=== PATIENT | female | born 1955 | race African-American/Black ===

== ENCOUNTER 2016-09-10 00:56 | Emergency (ER) | payer BC ==
[2016-09-10 01:08] VITALS: BP 149/71; BMI 34.4
--- NOTE | 2016-09-10 01:44 | DR.GENAD ---
HPI - PCP Primary Care Physician: Cas Uribe - HPI Comment HPI Comment: HISTORY BELOW. - Complaint/Symptoms Chief Complaint Doctors Comments: PATIENT FELL YESTERDAY 18:00 PM. INJURY TO NECK, RIGHT SHOULDER, RIGHT ELBOW AND LT FOOT. PATIENT HAVE HEADACHE. NO LOC.HAVE SEVERE ARTHRITIS. DID CERVICAL SPINE FUSION FEW MONTHS AGO. TONIGHT, PAIN WORSE. Chief Complaint:: " I feel this afternoon and im hurting in my right shoulder all down my arm, Left foot, and some pain in my neck. Self Treatment fo Chief Complaint: 1/ Percocet - Nurses notes reviewed Nurses Notes Review: Yes - Source History Provided: Patient - Mode of Arrival Mode of Arrival: Ambulatory - Timing Onset of Chief Complaint: 09/09/16 Came on: Suddenly - Duration Duration: Constant Duration: Hours - Severity Severity: Moderate PMH - PMH Past Medical History: Yes Past Medical History: Asthma, Diabetes, Hypertension, Seizures Past Surgical History: Yes Surgical History: , Cholecystectomy, Ortho Surgery - Family History History of Family Medical Conditions: Yes Family Medical History: Diabetes Mellitus, Cancer, [place], Sudden Cardiac , Hypertension - Social History Alcohol Use: None Do you use any recreational Drugs:: No Lives Where: Home - infectious screening Have you traveled outside the country in the last 6 months?: No ROS - Review of Systems Constitutional: No Symptoms Reported Eyes: No Symptoms Reported ENTM: No Symptoms Reported Respiratoy: No Symptoms Reported Cardiovascular: No Symptoms Reported Gastrointestinal/Abdominal: No Symptoms Reported Genitourinary: No Symptoms Reported Neurological: Headache, Numbness Musculoskeletal: Right, Neck, Shoulder, Elbow, Foot (LEFT) Integumentary: Bruises Hematologic/Lymphatic: No Symptoms Reported Endocrine: No Symptoms Reported All Other Systems: Reviewed and Negative PE - Vital Signs Vitals: Temperature 98.7 F Pulse Rate 84 Respiratory Rate 18 Blood Pressure [Left Arm] 97/51 Blood Pressure [Right Arm] 128/64 Blood Pressure 149/71 O2 Sat by Pulse Oximetry 97 - General Limitations: No Limitations General Appearance: Alert - Head Head Exam: Normal Inspection - Eyes Eye exam: Normal Appearance - ENT ENT Exam: Normal External Ear Exam External Ear Exam: Normal External Inspection TM/Canal Exam: Bilateral Normal Nose Exam: Normal Nose Exam Mouth Exam: Normal Inspection Throat Exam: Normal Inspection - Neck Neck Exam: Trachea Midline, Tenderness (POSTERIOR LOWER NECK) - Chest Chest Inspection: Symmetric Chest Wall Rise - Respiratory Respiratory Exam: Normal Lung Sounds Bilat Respiratory Exam: Bilateral Clear to Auscultation - Cardiovascular Cardiovascular Exam: Regular Rate, Normal Rhythm, Normal Heart Sounds - Abdominal Exam Abdominal Exam: Normal Bowel Sounds, Soft. negative: Tenderness - Extremities Extremities Exam: Tenderness (RIGHT SHOULDER AND RIGHT ELBOW AND LEFT FOOT.). negative: Full ROM (DECREASE RIGHT SHOULDER.) - Back Back Exam: Paraspinal Tenderness - Neurologic Neurological Exam: Alert, Oriented X3 - Psychiatric Psychiatric Exam: Normal Affect, Normal Mood - Skin Skin Exam: Normal Color MDM - Additional Information Additional Information Obtained From: Family - Differential Diagnosis Differential Diagnosis: SHOULDER AND ELBOW NECK AND FOOT FRATURE, CONTUSION AND SPRAIN. Course - Treatment Treatment: SEE ORDERS - Education/Counseling Education/Counseling: Patient, Family, Education Educated On: Treatment, Diagnosis, Needs for Follow Up ROR - XRAY XRAY Interpreted by: Radiologist XRAY Findings: REPORT DISCUSS WITH PATIENT AND FAMILY. - Diagnosis Discharge Problem: Cervical strain Qualifiers: Encounter type: initial encounter Qualified Code(s): S16.1XXA - Strain of muscle, fascia and tendon at neck level, initial encounter Sprain of shoulder, right Qualifiers: Encounter type: initial encounter Shoulder sprain type: unspecified sprain Qualified Code(s): S43.401A - Unspecified sprain of right shoulder joint, initial encounter Foot contusion Qualifiers: Encounter type: initial encounter Laterality: right Qualified Code(s): S90.31XA - Contusion of right foot, initial encounter Elbow contusion Qualifiers: Encounter type: initial encounter Laterality: right Qualified Code(s): S50.01XA - Contusion of right elbow, initial encounter - Discharge Plan Disposition: HOME, SELF-CARE Condition: Stable - Follow ups/Referrals Follow ups/Referrals: CAS URIBE [Primary Care Provider] - 09/13/16 - Instructions Instructions: Shoulder Sprain, Cervical Strain and Sprain With Rehab-SportsMed , Elbow Contusion, [id number], Foot Contusion, [id number] Additional Instructions: RETURN TO ED IF WORSE.
[2016-09-10] MEDS ORDERED: TORADOL 60 MG VIAL IM ONE (01:48)
[2016-09-10] MEDS ORDERED: TORADOL 60 MG VIAL ONE (02:06)
--- NOTE | 2016-09-10 02:47 | CT ---
EXAM: CT CERVICAL SPINE WITHOUT CONTRAST INDICATION: Fall, neck pain COMPARISION: No priors TECHNIQUE: Axial CT examination of the cervical spine was performed without intravenous contrast. Coronal and s agittal planes were reconstructed using the axial data. FINDINGS: There is anterior plate and screw and interbody fusion of C4 through C7. Advanced degenerative disc changes are present at C3-4. There is 4 mm of retrolisthesis of C3 relative to C4. There is a focal region of ossification of the posterior longitudinal ligament posterior to the C3-4 disc. No acute f racture or subluxation identified. The facets are intact. The central canal is patent. IMPRESSION: Cervical fusion noted. Chronic advanced degenerative changes are present at C3-4 above the fusion. N o acute abnormality identified. Reported By:
--- NOTE | 2016-09-10 02:49 | RAD ---
EXAM: Right elbow x-ray INDICATION: Pain COMPARISION: No priors for comparison TECHNIQUE: AP and lateral, 2 views FINDINGS: No acute fracture or dislocation. There is no evidence of an intraosseous lesion. The joint spaces a re preserved. No joint effusion is identified. The surrounding soft tissues appear unremarkable. The re is no evidence of a radiopaque foreign body. IMPRESSION: Normal right elbow x-ray exam Reported By:
--- NOTE | 2016-09-10 02:49 | RAD ---
EXAM: Right shoulder x-ray INDICATION: Pain COMPARISION: No priors for comparison TECHNIQUE: Lateral, AP with internal and external rotation, 3 views FINDINGS: No acute fracture or dislocation. The joint spaces are preserved. The soft tissues are normal. No ra diopaque foreign body. The visualize ribs are intact. IMPRESSION: Normal right shoulder x-ray examination Reported By:
--- NOTE | 2016-09-10 02:49 | CT ---
EXAM: CT BRAIN WITHOUT CONTRAST INDICATION: Fall, headache COMPARISION: No Priors TECHNIQUE: Routine axial CT of the brain was performed without intravenous contrast. FINDINGS: The cerebral and cerebellar cortex are normal. The ventricular system is nondilated. No intra or ext ra-axial mass or hemorrhage. The mayes-white junction is preserved. There is no evidence of subacute ischemic change. The basilar cisterns are clear. The skull is intact. The mastoid air cells are clear. There is chron ic left maxillary sinusitis. IMPRESSION: Normal brain CT examination Left maxillary sinusitis, chronic Reported By:
--- NOTE | 2016-09-10 02:50 | RAD ---
EXAM: Left foot x-ray INDICATION: Pain COMPARISION: None TECHNIQUE: AP, lateral, and oblique, three views FINDINGS: No acute fracture or dislocation. The joint spaces are preserved. The soft tissues are normal. No ra diopaque foreign body. IMPRESSION: Normal left foot x-ray exam Reported By:
== END 2016-09-10 03:22 | disposition home or self-care (01) ==
LOC: ER 00:56
DX: S16.1XXA Strain of muscle, fascia and tendon at neck level, initial encounter (principal); S43.401A Unspecified sprain of right shoulder joint, initial encounter; S90.31XA Contusion of right foot, initial encounter; S50.01XA Contusion of right elbow, initial encounter; W19.XXXA Unspecified fall, initial encounter; Y92.9 Unspecified place or not applicable
CPT/HCPCS: 70450; 72125; 73030; 73070; 73630; 96372; 99282; J1885

== ENCOUNTER → 2016-10-27 | Outpatient (CLI) | payer BC ==
--- NOTE | 2016-10-27 10:22 | MRI ---
MRI right shoulder without contrast Indication: Right shoulder pain since fall 2 months ago. Technique: Multi sequence, multiplanar MR images of the right shoulder were obtained without contras t. Comparison: Radiograph September 10, 2016 Findings: No acute fracture, malalignment or suspicious osseous lesion is seen. There is a high-grade, near complete bursal sided tear of the mid and posterior supraspinatus tendon at the critical zone. There is also a near complete-complete tear of the distal infraspinatus tendo n at the footplate with central retraction of the tendon to the level of the mid humeral head. There is mild tendinosis of the cranial subscapularis tendon without discrete tear. The teres minor appea rs intact. There is moderate edema of the supra and infraspinatus muscle bellies without associated atrophy. There are mild-moderate degenerative changes of the AC joint with associated subchondral cyst format ion within the distal clavicle and mild capsular hypertrophy, which encroaches upon the subjacent davis praspinatus. The type 2 acromion shows no significant anterior or lateral downsloping. There are mod erate degenerative changes of the glenohumeral joint with subchondral cyst formation within the ante rior and inferior osseous glenoid. There is no significant effusion. There is moderate fluid within the subdeltoid/subacromial bursa. There is thickening and intermediate signal of the intraarticular portion of the long head biceps te ndon with small fluid within the tendon sheath. The extra-articular tendon is appropriately position ed within the bicipital groove. There is moderate degenerative fraying of the anterior inferior labr um and intermediate intrasubstance signal within the anterior superior labrum, extending to the clarice ps anchor. Impression: High-grade, near full thickness bursal sided tear of the mid and posterior supraspinatus tendon at t he critical zone. Near complete-complete tear of the distal infraspinatus tendon with central tendon retraction to the level of the mid humeral head. Mild-moderate AC and glenohumeral joint DJD . Moderate fluid within the subdeltoid/subacromial bursa , either related to cuff tears or reflecting bursitis. Suspected SLAP tear and mild tenosynovitis of the long head biceps tendon. Reported By:
== END | disposition home or self-care (01) ==
LOC: RAD 08:43
PROVIDERS: ATTEND Nurse Practitioner Family
DX: M19.011 Primary osteoarthritis, right shoulder (principal); G81.91 Hemiplegia, unspecified affecting right dominant side; S46.811A Strain of other muscles, fascia and tendons at shoulder and upper arm level, right arm, initial encounter; X58.XXXA Exposure to other specified factors, initial encounter
CPT/HCPCS: 73221

== ENCOUNTER → 2016-11-25 | Outpatient (CLI) | payer BC ==
--- NOTE | 2016-11-25 10:09 | RAD ---
Three views of the right shoulder. Indication: Right shoulder pain. Conclusion: The right shoulder shows no fracture, malalignment or appreciable degenerative changes. No externally rotated view was provided. Reported By:
== END ==
LOC: RAD 09:12
PROVIDERS: ATTEND Specialist
DX: M25.511 Pain in right shoulder (principal)
CPT/HCPCS: 73030

== ENCOUNTER 2017-03-17 11:33 | Emergency (ER) | payer BC ==
[2017-03-17 11:49] VITALS: BP 150/70; BMI 33.3
--- NOTE | 2017-03-17 12:15 | DR.GENAD ---
HPI - PCP Primary Care Physician: [place] - Complaint/Symptoms Chief Complaint Doctors Comments: Patient admits to a bad cough for three weeks , this morning took two tablespoonsful, the cough continues. She admits to being drowsy and weak.Patient admits to a two pillow orthopnea, PND and can only walk a short distance before getting shortness of breath. Chief Complaint:: HAS HAD A BAD COUGH FOR LAST 3 WEEKS, ORDERED PHENERGAN WITH CODIENE FOR THE COUGH. SHE TOOK REGULAR MEDS AND 2 TABLESPOONS OF PHENERGAN WITH CODEINE AT ABOUT 0745 Self Treatment fo Chief Complaint: PT HAS INCREASED DROWSINESS. INCREASED WEAKNESS - Source History Provided: Patient, Family Member - Mode of Arrival Mode of Arrival: Ambulatory - Timing Onset of Chief Complaint: 03/17/17 PMH - PMH Past Medical History: Yes Past Medical History: Asthma, Diabetes, Hypertension, Seizures Past Surgical History: Yes Surgical History: , Cholecystectomy, Ortho Surgery - Family History History of Family Medical Conditions: Yes Family Medical History: Diabetes Mellitus, Cancer, [place], Sudden Cardiac , Hypertension - Social History Type of Tobacco Use: None Does any household member use tobacco: No Alcohol Use: None Do you use any recreational Drugs:: No Lives With: Family Lives Where: Home - infectious screening In the last 2 months have you had wt loss of >10#?: NO Have you had fever, night sweats or hemotysis?: No Have you traveled outside the country in the last 6 months?: No Isolation: Standard ROS - Review of Systems Eyes: No Symptoms Reported ENTM: No Symptoms Reported Respiratoy: No Symptoms Reported Cardiovascular: No Symptoms Reported Gastrointestinal/Abdominal: No Symptoms Reported Genitourinary: No Symptoms Reported Neurological: No Symptoms Reported Musculoskeletal: No Symptoms Reported Integumentary: No Symptoms Reported Hematologic/Lymphatic: No Symptoms Reported Endocrine: No Symptoms Reported Psychiatric: No Symptoms Reported All Other Systems: Reviewed and Negative PE - Vital Signs Vitals: Temperature 98.4 F Pulse Rate 81 Respiratory Rate 18 Blood Pressure [Left Arm] 97/51 Blood Pressure [Right Arm] 128/64 Blood Pressure 150/70 O2 Sat by Pulse Oximetry 91 - General Limitations: No Limitations General Appearance: Alert, In No Apparent Distress - Head Head Exam: Normal Inspection, Atraumatic - Eyes Eye exam: Normal Appearance, PERRL, EOMI - ENT ENT Exam: Normal Exam External Ear Exam: Normal External Inspection TM/Canal Exam: Bilateral Normal Nose Exam: Normal Nose Exam Mouth Exam: Normal Inspection Throat Exam: Normal Inspection - Neck Neck Exam: Normal Inspection, Full ROM - Chest Chest Inspection: Normal Inspection - Respiratory Respiratory Exam: Normal Lung Sounds Bilat Respiratory Exam: Bilateral Clear to Auscultation - Cardiovascular Cardiovascular Exam: Regular Rate, Normal Rhythm - Abdominal Exam Abdominal Exam: Normal Inspection, Normal Bowel Sounds, Soft Abdominal Tenderness: negative: RUQ, RLQ, LUQ, LLQ, Epigastrium, Suprapubic, Diffuse, Mild, Moderate, Severe, Other - Extremities Extremities Exam: Normal Inspection, Edema (two +pitting) - Back Back Exam: Normal Inspection - Neurologic Neurological Exam: Alert, Oriented X3, CN II-XII Intact - Psychiatric Psychiatric Exam: Normal Affect, Normal Mood - Skin Skin Exam: Warm, Dry, Intact Course - Treatment Treatment: Patient is alert in no acute distress, answers appropriately - Reevaluation 1st: Improved - Education/Counseling Education/Counseling: Patient, Family, Education (concerning medication instructions.), Counseling Educated On: Treatment, Diagnosis, Prognosis, Needs for Follow Up ROR - Labs Reviewed Result Diagrams: 03/17/17 12:26 03/17/17 12:26 Laboratory: WBC 7.4 X10^3/uL (3.6-10.0) 03/17/17 12:26 RBC 5.07 X10^6/uL (3.5-5.4) 03/17/17 12:26 Hgb 11.0 g/dL (12.0-16.0) L 03/17/17 12:26 Hct 34.7 % (36.0-47.0) L 03/17/17 12:26 MCV 68.4 fL (80.0-100.0) L 03/17/17 12:26 MCH 21.7 pg (27.0-34.0) L 03/17/17 12:26 MCHC 31.7 g/dL (33.0-35.0) L 03/17/17 12:26 RDW 14.3 % (11.6-16.5) 03/17/17 12:26 Plt Count 208 X10^3/uL (150.0-450.0) 03/17/17 12:26 Plt Count Comment Adequate (ADEQUATE) 03/17/17 12:26 MPV 8.8 fL (7.4-11.0) 03/17/17 12:26 Neut % 66.6 % (42.0-75.0) 03/17/17 12:26 Lymph % 19.7 % (21.0-51.0) L 03/17/17 12:26 Bullitt % 8.9 % (0.0-13.0) 03/17/17 12:26 Eos % 4.2 % (0.9-2.9) H 03/17/17 12:26 Baso % 0.6 % (0.2-1.0) 03/17/17 12:26 Neut # 4.9 x10^3/uL (2.2-4.8) H 03/17/17 12:26 Lymph # 1.5 X10^3/uL (1.3-2.9) 03/17/17 12:26 Bullitt # 0.7 x10^3/uL (0.3-0.8) 03/17/17 12:26 Eos # 0.3 x10^3/uL (0.0-0.2) H 03/17/17 12:26 Baso # 0.0 X10^3/uL (0.0-0.1) 03/17/17 12:26 Absolute Nucleated RBC 0.0 /100WBC 03/17/17 12:26 Plt Morphology Comment Normal (NORMAL) 03/17/17 12:26 RBC Morphology Abnormal (NORMAL) A 03/17/17 12:26 Hypochromasia 2+ A 03/17/17 12:26 Poikilocytosis Slight A 03/17/17 12:26 Microcytosis 1+ A 03/17/17 12:26 Sodium 142 mmol/L (136-145) 03/17/17 12:26 Corrected Sodium TNP 03/17/17 12:26 Potassium 3.0 mmol/L (3.5-5.1) L* 03/17/17 12:26 Chloride 104 mmol/L (98-107) 03/17/17 12:26 Carbon Dioxide 30.5 mmol/L (21-32) 03/17/17 12:26 BUN 25 mg/dL (7-18) H 03/17/17 12:26 Creatinine 1.17 mg/dL (0.55-1.02) H 03/17/17 12:26 Est GFR (MDRD) Af Amer > 60 (>60) 03/17/17 12:26 Est GFR (MDRD) Non-Af 50 (>60) L 03/17/17 12:26 Glucose 102 mg/dL (65-99) H 03/17/17 12:26 Calcium 8.8 mg/dL (8.5-10.1) 03/17/17 12:26 Corrected Calcium 9.7 mg/dL (8.5-10.1) 03/17/17 12:26 Total Bilirubin 0.20 mg/dL (0.2-1.0) 03/17/17 12:26 AST 19 Units/L (15-37) 03/17/17 12:26 ALT 17 Units/L (12-78) 03/17/17 12:26 Alkaline Phosphatase 98 Units/L (46-116) 03/17/17 12:26 Creatine Kinase 273 Units/L (26-192) H 03/17/17 12:26 CK-MB (CK-2) 3.1 ng/mL (0-4.0) 03/17/17 12:26 CK/CKMB % Calc 1.1 % (<4) 03/17/17 12:26 Troponin I < 0.02 ng/mL (0-1.5) 03/17/17 12:26 C-Reactive Protein 6.10 mg/L (0-3.0) H 03/17/17 12:26 Total Protein 7.3 g/dL (6.4-8.2) 03/17/17 12:26 Albumin 2.9 g/dL (3.4-5.0) L 03/17/17 12:26 Globulin 4.4 g/dL (2.5-4.5) 03/17/17 12:26 Albumin/Globulin Ratio 0.7 Ratio (1.1-2.1) L 03/17/17 12:26 - XRAY XRAY Interpreted by: Radiologist (Chest comparison reference 08/06/15 Findings: upper normal heart size with central pulmonary vascular distention. There is no evidence for consolidation, pneumothorax or large pleural effusion. Impression: plmonary vascular congestion, at least some of which may be related to partial expiration and nonstandard portable factors.) - Diagnosis Discharge Problem: Pulmonary vascular congestion Accidental overdose by codeine Qualifiers: Encounter type: initial encounter Qualified Code(s): T40.2X1A - Poisoning by other opioids, accidental (unintentional), initial encounter - Discharge Plan Condition: Stable - Follow ups/Referrals Follow ups/Referrals: CAS AVILA [Primary Care Provider] - 3 days - Instructions
[2017-03-17] MEDS ORDERED: NARCAN INJ IVP ONE (12:26)
[2017-03-17 12:34] LABS: BASOPHILS % (AUTO) 0.6 % (0.2-1.0); EOSINOPHILS # (AUTO) 0.3 x10^3/uL (0.0-0.2); EOSINOPHILS % (AUTO) 4.2 % (0.9-2.9); HEMATOCRIT 34.7 % (36.0-47.0); LYMPHOCYTES # (AUTO) 1.5 X10^3/uL (1.3-2.9); LYMPHOCYTES % (AUTO) 19.7 % (21.0-51.0); MEAN CORPUSCULAR HEMOGLOBIN 21.7 pg (27.0-34.0); MEAN CORPUSCULAR HGB CONC 31.7 g/dL (33.0-35.0); MEAN CORPUSCULAR VOLUME 68.4 fL (80.0-100.0); MEAN PLATELET VOLUME 8.8 fL (7.4-11.0); MONOCYTES # (AUTO) 0.7 x10^3/uL (0.3-0.8); MONOCYTES % (AUTO) 8.9 % (0.0-13.0); NEUTROPHILS # (AUTO) 4.9 x10^3/uL (2.2-4.8); NEUTROPHILS % (AUTO) 66.6 % (42.0-75.0); PLATELET COUNT 208 X10^3/uL (150.0-450.0); RED BLOOD COUNT 5.07 X10^6/uL (3.5-5.4); RED CELL DISTRIBUTION WIDTH 14.3 % (11.6-16.5); WHITE BLOOD COUNT 7.4 X10^3/uL (3.6-10.0)
[2017-03-17] MEDS ORDERED: NARCAN INJ ONE (12:47)
--- NOTE | 2017-03-17 12:50 | RAD ---
Examination: Portable AP chest History: Cough Comparison reference 08/06/2015 Findings: Upper normal heart size with central pulmonary vascular distention. There is no evidence fo r consolidation, pneumothorax or large pleural effusion. Impression: Pulmonary vascular congestion, at least some of which may be related to partial expiratio n and nonstandard portable factors. Reported By:
[2017-03-17 12:52] LABS: ALANINE AMINOTRANSFERASE 17 Units/L (12-78); ALBUMIN 2.9 g/dL (3.4-5.0); ALKALINE PHOSPHATASE 98 Units/L (46-116); ASPARTATE AMINO TRANSFERASE 19 Units/L (15-37); BLOOD UREA NITROGEN 25 mg/dL (7-18); CARBON DIOXIDE 30.5 mmol/L (21-32); CHLORIDE 104 mmol/L (98-107); CKMB % 1.1 % (<4); CREATINE KINASE 273 Units/L (26-192); CREATINE KINASE MB 3.1 ng/mL (0-4.0); CREATININE 1.17 mg/dL (0.55-1.02); SODIUM 142 mmol/L (136-145); TOTAL PROTEIN 7.3 g/dL (6.4-8.2); TROPONIN I < 0.02 ng/mL (0-1.5); eGFR BLACK RACES > 60 (>60); eGFR NON BLACK RACES 50 (>60)
[2017-03-17] MEDS ORDERED: NS 1000 ML 1,000 ML ONE (12:56)
[2017-03-17] MEDS ORDERED: NS 1000 ML 1,000 ML IV SCH (13:00)
[2017-03-17 13:08] LABS: CALCIUM 8.8 mg/dL (8.5-10.1); COR CA(FOR HYPOALB) 9.7 mg/dL (8.5-10.1); HYPOCHROMASIA 2+; MICROCYTOSIS 1+; PLATELET MORPHOLOGY COMMENT NORMAL (NORMAL); POIKILOCYTOSIS SLIGHT
[2017-03-17] MEDS ORDERED: K-LYTE EFFERVESCENT ONE (13:23)
[2017-03-17] MEDS ORDERED: K-LYTE EFFERVESCENT PO SCH (14:00)
== END 2017-03-17 14:40 | disposition home or self-care (01) ==
LOC: ER 12:08
DX: R09.89 Other specified symptoms and signs involving the circulatory and respiratory systems (principal); T40.2X1A Poisoning by other opioids, accidental (unintentional), initial encounter
CPT/HCPCS: 36415; 71010; 80053; 82550; 82553; 84484; 85025; 86140; 93005; 93010; 96365; 96374; 99283; 99284; A4222; J2310

== ENCOUNTER → 2017-05-16 | Outpatient (CLI) | payer BC ==
--- NOTE | 2017-05-16 14:04 | RAD ---
HISTORY: Cough Study: Two views the chest Comparison: March 17, 2017 Findings: The trachea is midline. The cardiac silhouette is enlarged. Increased perihilar markings and mild b ronchial thickening are noted. Postoperative changes of the cervical spine are partially visualize d. Surgical clips project over the right upper quadrant the abdomen. IMPRESSION: 1. Radiographic findings of bronchitis/viral illness. Reported By:
== END ==
LOC: RAD 13:08
PROVIDERS: ATTEND Obstetrics & Gynecology Obstetrics
DX: R60.1 Generalized edema (principal)
CPT/HCPCS: 71046

== ENCOUNTER → 2017-05-18 | Outpatient (CLI) | payer BC | LOC: RAD 14:41 | PROVIDERS: ATTEND Obstetrics & Gynecology Obstetrics | DX: R60.1 Generalized edema (principal); R05 Cough | CPT/HCPCS: 93306 ==

== ENCOUNTER 2017-08-22 07:42 | Emergency (ER) | payer BC ==
[2017-08-22 07:47] VITALS: BMI 33.6
--- NOTE | 2017-08-22 08:14 | CT ---
HISTORY: Headache, dysphagia, ataxia, tongue deviation Study: CT brain without contrast Comparison: September 10, 2016 Technique: Multiple axial images of the brain were obtained from the skull base to the vertex withou t administration of IV contrast. AEC was utilized. Findings: No acute intraparenchymal hemorrhage or mass can be identified. No extra-axial fluid collections are seen. No alteration in the attenuation of the brain parenchyma can be identified to suggest acute o r subacute ischemic change. There is a background of mild chronic microvascular ischemic disease. If there is high clinical suspicion for an acute or subacute ischemic event, MRI would be recommended. The ventricular system is symmetric and nondilated. Severe chronic left maxillary sinusitis is noted . IMPRESSION: No acute intracranial process can be identified. Background of mild chronic microvascular ischemic di sease. If there is high clinical suspicion for an acute or subacute ischemic event, MRI would be mila mmended. Reported By:
[2017-08-22 08:36] LABS: BASOPHILS # (AUTO) 0.1 X10^3/uL (0.0-0.1); BASOPHILS % (AUTO) 0.8 % (0.2-1.0); EOSINOPHILS # (AUTO) 0.3 x10^3/uL (0.0-0.2); EOSINOPHILS % (AUTO) 4.3 % (0.9-2.9); HEMATOCRIT 38.2 % (36.0-47.0); HEMOGLOBIN 12.1 g/dL (12.0-16.0); LYMPHOCYTES # (AUTO) 1.9 X10^3/uL (1.3-2.9); LYMPHOCYTES % (AUTO) 26.5 % (21.0-51.0); MEAN CORPUSCULAR HEMOGLOBIN 21.7 pg (27.0-34.0); MEAN CORPUSCULAR HGB CONC 31.6 g/dL (33.0-35.0); MEAN CORPUSCULAR VOLUME 68.7 fL (80.0-100.0); MEAN PLATELET VOLUME 8.7 fL (7.4-11.0); MONOCYTES # (AUTO) 0.6 x10^3/uL (0.3-0.8); MONOCYTES % (AUTO) 8.8 % (0.0-13.0); NEUTROPHILS # (AUTO) 4.2 x10^3/uL (2.2-4.8); NEUTROPHILS % (AUTO) 59.6 % (42.0-75.0); PLATELET COUNT 243 X10^3/uL (150.0-450.0); RED BLOOD COUNT 5.57 X10^6/uL (3.5-5.4); RED CELL DISTRIBUTION WIDTH 14.5 % (11.6-16.5); WHITE BLOOD COUNT 7.1 X10^3/uL (3.6-10.0)
[2017-08-22 08:51] LABS: HYPOCHROMASIA 1+; MICROCYTOSIS 1+; PLATELET MORPHOLOGY COMMENT NORMAL (NORMAL)
[2017-08-22 08:52] LABS: ALANINE AMINOTRANSFERASE 27 Units/L (12-78); ALKALINE PHOSPHATASE 123 Units/L (46-116); ASPARTATE AMINO TRANSFERASE 15 Units/L (15-37); BLOOD UREA NITROGEN 24 mg/dL (7-18); CALCIUM 8.7 mg/dL (8.5-10.1); CARBON DIOXIDE 31.6 mmol/L (21-32); CHLORIDE 101 mmol/L (98-107); COR CA(FOR HYPOALB) 9.5 mg/dL (8.5-10.1); COR NA(FOR HYPERGLY) 141 mmol/L (136-145); CREATINE KINASE 253 Units/L (26-192); CREATINE KINASE MB 2.5 ng/mL (0-4.0); CREATININE 1.29 mg/dL (0.55-1.02); SODIUM 138 mmol/L (136-145); TOTAL PROTEIN 8.3 g/dL (6.4-8.2); TROPONIN I < 0.02 ng/mL (0-1.5); eGFR BLACK RACES 54 (>60); eGFR NON BLACK RACES 44 (>60)
--- NOTE | 2017-08-22 09:32 | DR.GENAD ---
HPI - PCP Primary Care Physician: STERLING SAMUELSP - HPI Comment HPI Comment: PATIENTS TONGUE DEVIATES TO THE LEFT. HER UNSEADINESS AND ARM NUMBNESS GETTING WORSE. NO FEVER OR SINUS CONGESTION. - Complaint/Symptoms Chief Complaint Doctors Comments: HEADCHE, LEFT ARM WEAKNESS, DYSPHAGIA AND TONGUE FEELING SWOLLEN AND ATAXIA SINCE LAST NIGHT. Chief Complaint:: PT. STATES SHE BEGAN HAVING A HEADACHE LAST NIGHT. SHE SAYS HER TOUNGE FEELS SWOLLEN ON ONE SIDE AND IT IS DIFFICULT FOR HER TO SWALLOW. PT. SAYS HER LEFT ARM FEELS TIRED. PT. HAS AN UNSTEADY GAIT. TOUNGE DEVIATION TO THE LEFT. - Nurses notes reviewed Nurses Notes Review: Yes - Source History Provided: Patient - Mode of Arrival Mode of Arrival: Ambulatory - Timing Onset of Chief Complaint: 08/22/17 Came on: Suddenly - Duration Duration: Constant Duration: Days - Severity Severity: Moderate PMH - PMH Past Medical History: Yes Past Medical History: Asthma, Diabetes, Hypertension, Seizures Past Medical History Comment: TIA Past Surgical History: Yes Surgical History: , Cholecystectomy, Ortho Surgery - Family History History of Family Medical Conditions: Yes Family Medical History: Diabetes Mellitus, Cancer, [place], Sudden Cardiac , Hypertension - Social History Does patient currently use any type of tobacco product: No Have you used tobacco products in the last 12 months: No Type of Tobacco Use: None Does any household member use tobacco: No Alcohol Use: None Do you use any recreational Drugs:: No Lives With: Spouse Lives Where: Home - infectious screening In the last 2 months have you had wt loss of >10#?: NO Have you had fever, night sweats or hemotysis?: No Have you traveled outside the country in the last 6 months?: No Isolation: Standard ROS - Review of Systems Constitutional: Weakness (LT ARM WEAK.) Eyes: No Symptoms Reported ENTM: negative: Mouth Swelling (TONGUE FELL SWOLLEN. DIFFICULT TO SWALLOW.) Respiratoy: Non-Productive Cough. negative: Short of Breath, Wheezing, Hemoptysis Cardiovascular: negative: Chest Pain, Edema Gastrointestinal/Abdominal: negative: Abdominal Pain Genitourinary: negative: Dysuria, Hematuria Neurological: Headache, Numbness (LT ARM), Weakness, Dizziness Musculoskeletal: No Symptoms Reported Integumentary: No Symptoms Reported Hematologic/Lymphatic: No Symptoms Reported Endocrine: No Symptoms Reported All Other Systems: Reviewed and Negative PE - Vital Signs Vitals: Temperature 97.6 F Pulse Rate [Left Brachial] 74 Pulse Rate 86 Respiratory Rate 16 Blood Pressure [Left Arm] 144/70 Blood Pressure [Right Arm] 128/64 Blood Pressure 158/69 O2 Sat by Pulse Oximetry 96 - General Limitations: No Limitations General Appearance: Alert - Head Head Exam: Normal Inspection - Eyes Eye exam: Normal Appearance - ENT ENT Exam: Normal External Ear Exam External Ear Exam: Normal External Inspection TM/Canal Exam: Bilateral Normal Nose Exam: Normal Nose Exam Mouth Exam: Normal Inspection Throat Exam: Normal Inspection - Neck Neck Exam: Trachea Midline - Chest Chest Inspection: Symmetric Chest Wall Rise - Respiratory Respiratory Exam: Normal Lung Sounds Bilat Respiratory Exam: Bilateral Clear to Auscultation - Cardiovascular Cardiovascular Exam: Regular Rate, Normal Rhythm, Normal Heart Sounds - Abdominal Exam Abdominal Exam: Normal Bowel Sounds, Soft. negative: Tenderness - Extremities Extremities Exam: Normal Inspection - Back Back Exam: Normal Inspection - Neurologic Neurological Exam: Alert, Oriented X3. negative: CN II-XII Intact - Psychiatric Psychiatric Exam: Normal Affect, Normal Mood - Skin Skin Exam: Normal Color MDM - Additional Information Additional Information Obtained From: Family - Differential Diagnosis Differential Diagnosis: CVA, TIA, [place], ELECTROLYTE ABNORMALITY, UTI, SEPSIS Course - Treatment Treatment: SEE ORDERS. PATIENT CONTINUE TO COUGH INTERMITTENTLY FROM SWALLOWING HER SALIVA. LT ARM STILL WEAK AND SHE STILL HAVE ATAXIA. POTASSIUM GIVEN AND D50 STARTED/PATIENTS GLUSOSE DECREASING. - Consultation Consultation Comments: DISCUSS PATIENT WITH . MRI BRAIN REQUESTED. POSSIBLE RT RETINNA DETACHMENT. TRANSFER TO [facility]. DR. ESTEVES IN ED ACCEPTED PATIENT. - Education/Counseling Education/Counseling: Patient, Family, Education Educated On: Diagnosis ROR - Labs Reviewed Laboratory Results Reviewed?: Yes Result Diagrams: 08/22/17 08:23 08/22/17 08:23 Laboratory: WBC 7.1 X10^3/uL (3.6-10.0) 08/22/17 08:23 RBC 5.57 X10^6/uL (3.5-5.4) H 08/22/17 08:23 Hgb 12.1 g/dL (12.0-16.0) 08/22/17 08:23 Hct 38.2 % (36.0-47.0) 08/22/17 08:23 MCV 68.7 fL (80.0-100.0) L 08/22/17 08: MCH 21.7 pg (27.0-34.0) L 08/22/17 08: MCHC 31.6 g/dL (33.0-35.0) L 08/22/17 08: RDW 14.5 % (11.6-16.5) 08/22/17: Plt Count 243 X10^3/uL (150.0-450.0) 08/22/17: Plt Count Comment Adequate (ADEQUATE) 08/22/17: MPV 8.7 fL (7.4-11.0) 08/22/17: Neut % (Auto) 59.6 % (42.0-75.0) 08/22/17: Lymph % (Auto) 26.5 % (21.0-51.0) 08/22/17 08: [place] % (Auto) 8.8 % (0.0-13.0) 08/22/17 08: Eos % (Auto) 4.3 % (0.9-2.9) H 08/22/17 08: Baso % (Auto) 0.8 % (0.2-1.0) 08/22/17: Neut # (Auto) 4.2 x10^3/uL (2.2-4.8) 08/22/17 08: Lymph # (Auto) 1.9 X10^3/uL (1.3-2.9) 08/22/17 08: [place] # (Auto) 0.6 x10^3/uL (0.3-0.8) 08/22/17 08: Eos # (Auto) 0.3 x10^3/uL (0.0-0.2) H 08/22/17 08: Baso # (Auto) 0.1 X10^3/uL (0.0-0.1) 08/22/17 08: Absolute Nucleated RBC 0.1 /100WBC 08/22/17 08: Total Counted 100 08/22/17 08: Neutrophils % (Manual) 60 % (39-76) 08/22/17 08: Lymphocytes % (Manual) 28 % (13-43) 08/22/17 08:23 Monocytes % (Manual) 5 % (4-9) 08/22/17 08:23 Eosinophils % (Manual) 7 % (0-6) H 08/22/17 08:23 Plt Morphology Comment Normal (NORMAL) 08/22/17 08:23 RBC Morphology Abnormal (NORMAL) A 08/22/17 08:23 Hypochromasia 1+ A 08/22/17 08:23 Microcytosis 1+ A 08/22/17 08:23 INR Target Range - 08/22/17 08:23 INR 0.94 (0.8-1.3) 08/22/17 08:23 APTT 22.9 SECONDS (22.9-36.5) 08/22/17 08:23 PTT Comment - 08/22/17 08:23 Sodium 138 mmol/L (136-145) 08/22/17 08:23 Corrected Sodium 141 mmol/L (136-145) 08/22/17 08:23 Potassium 3.1 mmol/L (3.5-5.1) L 08/22/17 08:23 Chloride 101 mmol/L (98-107) 08/22/17 08:23 Carbon Dioxide 31.6 mmol/L (21-32) 08/22/17 08:23 BUN 24 mg/dL (7-18) H 08/22/17 08:23 Creatinine 1.29 mg/dL (0.55-1.02) H 08/22/17 08:23 Est GFR (MDRD) Af Amer 54 (>60) L 08/22/17 08:23 Est GFR (MDRD) Non-Af 44 (>60) L 08/22/17 08:23 Glucose 242 mg/dL (65-99) H 08/22/17 08:23 POC Glucose (mg/dL) 119 mg/dL (65-99) H 08/22/17 16:54 Calcium 8.7 mg/dL (8.5-10.1) 08/22/17 08:23 Corrected Calcium 9.5 mg/dL (8.5-10.1) 08/22/17 08:23 Total Bilirubin 0.30 mg/dL (0.2-1.0) 08/22/17 08:23 AST 15 Units/L (15-37) 08/22/17 08:23 ALT 27 Units/L (12-78) 08/22/17 08:23 Alkaline Phosphatase 123 Units/L (46-116) H 08/22/17 08:23 Creatine Kinase 253 Units/L (26-192) H 08/22/17 08:23 CK-MB (CK-2) 2.5 ng/mL (0-4.0) 08/22/17 08:23 CK/CKMB % Calc 1.0 % (<4) 08/22/17 08:23 Troponin I < 0.02 ng/mL (0-1.5) 08/22/17 08:23 Total Protein 8.3 g/dL (6.4-8.2) H 08/22/17 08:23 Albumin 3.0 g/dL (3.4-5.0) L 08/22/17 08:23 Globulin 5.3 g/dL (2.5-4.5) H 08/22/17 08:23 Albumin/Globulin Ratio 0.6 Ratio (1.1-2.1) L 08/22/17 08:23 Amylase 56 Units/L (25-115) 08/22/17 08:23 Lipase 82 Units/L (73-393) 08/22/17 08:23 - XRAY XRAY Interpreted by: Radiologist XRAY Findings: REPORT DISCUSS WITH PATIENT. - EKG Rhythm: NSR (EKG NOTED.) - Diagnosis Discharge Problem: Left-sided weakness, Ataxia Retinal detachment Qualifiers: Laterality: right Qualified Code(s): H33.21 - Serous retinal detachment, right eye - Discharge Plan Disposition: XF [facility] Condition: Stable - Follow ups/Referrals Follow ups/Referrals: CAS AVILA [Primary Care Provider] - 3 days - Instructions
[2017-08-22 09:51] LABS: AMYLASE 56 Units/L (25-115); LIPASE 82 Units/L (73-393)
[2017-08-22] MEDS ORDERED: NS + KCL 40 MEQ/L 1,000 ML IV SCH (11:00)
--- NOTE | 2017-08-22 14:21 | MRI ---
STUDY: MRA OF THE BRAIN HISTORY: Dysphagia. Ataxia. Headache, dizziness, left-sided weakness. Comparison: Brain MRI from August 22, 2017, head CT from August 22, 2017 and September 10, 2016. Technique: 3D [id number] imaging of the intracranial circulation was performed. Findings: 3D [id number] MRA examination shows normal flow related enhancement in the major intracranial art eries. There is no evidence of hemodynamically significant stenosis or aneurysm. There is a normal an terior communicating artery. Posterior communicating arteries are not identified. Vertebral arteries are codominant. IMPRESSION: 1. Normal MRA of the brain. Reported By:
--- NOTE | 2017-08-22 14:27 | MRI ---
STUDY: MRI OF THE BRAIN WITHOUT AND WITH GADOLINIUM HISTORY: Dysphagia. Ataxia. Dizziness, headache, and left-sided weakness. Technique: Multiplanar multi-sequence MRI of the brain was obtained using standard departmental fernandez col. Sagittal and axial T1, axial T2, FLAIR, diffusion (DWI/ADC), GRE, and coronal T2 images through the brain were performed. 18 cc of Omniscan was administered intravenously without reported complication following acquisition of informed written consent. Post gadolinium axial and coronal T1 weighted images were also performed and reviewed. Comparison: Head CT dated August 22, 2017. Findings: Pre gadolinium brain: The sulci, cisterns and ventricles are age appropriate. There are thin confluen t and scattered foci of T2 prolongation in the periventricular and subcortical white matter of both h emispheres. This is a nonspecific finding which likely represents microangiopathic change in a patien t of this age. There is no evidence of acute territorial infarction, hemorrhage, mass, mass effect, or midline shift . There are no abnormal intra-axial or extra-axial fluid collections. The major intracranial vascula r flow voids appear intact. The vertebral arteries are codominant. There is a curvilinear focus of T2 hyperintensity along the posterior nolasco of the retina on the righ t. This raises concern for retinal detachment. There is bilateral aphakia. Post gadolinium brain: Following the uneventful administration of intravenous gadolinium, there is no evidence of abnormal parenchymal or leptomeningeal enhancement. IMPRESSION: 1. No evidence of acute intracranial abnormality. 2. Nonspecific white matter change. 3. Curvilinear signal abnormality along the posterior aspect of the right globe. This finding raises concern for the possibility of retinal detachment. Clinical correlation is recommended. Reported By:
[2017-08-22] MEDS ORDERED: D5W 1000 ML IV 1,000 ML IV ONE (15:56)
[2017-08-22] MEDS ORDERED: D5W 1000 ML IV 1,000 ML IV SCH (16:00)
[2017-08-22 16:07] VITALS: BP 144/70
[2017-08-22] MEDS ORDERED: K-RIDER 10 MEQ/NS 100 ML 10 MEQ/100 ML BAG IV ONE ×2 (17:38→17:41)
[2017-08-22] MEDS ORDERED: D5W 1000 ML IV 1,000 ML with POTASSIUM CHLORIDE INJ 40 MEQ VIAL 40 MEQ IV SCH ×2 (18:00)
== END 2017-08-22 17:38 | disposition short-term general hospital (02) ==
LOC: ER 07:56
DX: R27.0 Ataxia, unspecified (principal); R53.1 Weakness; H33.21 Serous retinal detachment, right eye; R51 Headache
CPT/HCPCS: 36415; 70450; 70544; 70553; 80053; 82150; 82550; 82553; 83690; 84484; 85025; 85610; 85730; 93005; 93010; 96365; 96367; 99285; A4222; J3480

== ENCOUNTER 2021-08-30 15:01 | Observation (INO) ==
[2021-08-30 18:33] LABS: BASOPHILS # (AUTO) 0.1 X10^3/uL (0.0-0.1); BASOPHILS % (AUTO) 1.5 % (0.2-1.0); EOSINOPHILS # (AUTO) 0.2 x10^3/uL (0.0-0.2); MONOCYTES # (AUTO) 0.6 x10^3/uL (0.3-0.8)
[2021-08-30 18:37] VITALS: BMI 33.5
[2021-08-30 18:48] LABS: ALBUMIN 2.9 g/dL (3.4-5.0); CALCIUM 8.4 mg/dL (8.5-10.1); COR CA(FOR HYPOALB) 9.3 mg/dL (8.5-10.1); CREATININE 1.29 mg/dL (0.55-1.02); TOTAL PROTEIN 7.3 g/dL (6.4-8.2)
[2021-08-30 19:11] LABS: EOSINOPHILS % (AUTO) 2.2 % (0.9-2.9); HEMATOCRIT 38.6 % (36.0-47.0); HEMOGLOBIN 12.1 g/dL (12.0-16.0); LYMPHOCYTES # (AUTO) 2.7 X10^3/uL (1.3-2.9); LYMPHOCYTES % (AUTO) 35.7 % (21.0-51.0); MEAN CORPUSCULAR HGB CONC 31.5 g/dL (33.0-35.0); MEAN CORPUSCULAR VOLUME 70.1 fL (80.0-100.0); MEAN PLATELET VOLUME 9.5 fL (7.4-11.0); MONOCYTES % (AUTO) 7.2 % (0.0-13.0); NEUTROPHILS # (AUTO) 4.1 x10^3/uL (2.2-4.8); NEUTROPHILS % (AUTO) 53.4 % (42.0-75.0); RED BLOOD COUNT 5.51 X10^6/uL (3.5-5.4); RED CELL DISTRIBUTION WIDTH 14.5 % (11.6-16.5)
[2021-08-30 19:12] LABS: WHITE BLOOD COUNT 9.1 X10^3/uL (3.6-10.0)
[2021-08-30 19:21] LABS: GIANT PLATELET RARE; PLATELET MORPHOLOGY COMMENT ABNORMAL (NORMAL)
[2021-08-30 19:22] LABS: HYPOCHROMASIA 1+; MICROCYTOSIS SLIGHT
[2021-08-30 19:23] LABS: TARGET CELLS PRESENT
[2021-08-30 19:39] LABS: BILIRUBIN,URINE NEGATIVE (NEGATIVE); BLOOD/HEMOGLOBIN,URINE NEGATIVE (NEGATIVE); GLUCOSE, URINE 4+ (NEGATIVE); KETONES,URINE NEGATIVE (NEGATIVE); LEUKOCYTE ESTERASE ,URINE NEGATIVE (NEGATIVE); NITRITES,URINE NEGATIVE (NEGATIVE); PROTEIN,URINE NEGATIVE (NEGATIVE); UROBILINOGEN,URINE 1+ (NORMAL)
[2021-08-30] MEDS ORDERED: KLOR-CON PO PRN (19:42)
[2021-08-30] MEDS ORDERED: K-RIDER 10 MEQ/NS 100 ML 10 MEQ/100 ML BAG IV PRN (19:42)
[2021-08-30] MEDS ORDERED: POTASSIUM CHLORIDE LIQ 20 MEQ UDC PO PRN (19:42)
[2021-08-30] MEDS ORDERED: MAGNESIUM SULFATE 1 GRAM/100 mL PREMIX 1 G/100 ML BAG IV PRN (19:42)
[2021-08-30] MEDS ORDERED: MICRO K EXTEN CAP 10 MEQ PO PRN (19:42)
[2021-08-30] MEDS ORDERED: POTASSIUM CHL 60 MEQ/NS 0.45% 500 ML IV PRN (19:42)
[2021-08-30] MEDS ORDERED: POTASSIUM CHL 40 MEQ/NS 0.45% 500 ML IV PRN (19:42)
[2021-08-30 19:53] LABS: APPEARANCE,URINE CLEAR (CLEAR); COLOR,URINE STRAW (YELLOW)
[2021-08-30 19:54] LABS: BACTERIA,URINE TRACE /HPF (NEGATIVE); RBC,URINE 0-2 /HPF (0-3); SQUAMOUS EPITHELIAL CELL,UR FEW /HPF (NEGATIVE)
[2021-08-30 19:55] LABS: YEAST,URINE RARE /HPF (NEGATIVE)
[2021-08-30] MEDS: PROTONIX INJ 40 MG VIAL IVP SCH (20:40)
[2021-08-30] MEDS: REGLAN INJ 10 MG VIAL IVP SCH (20:41)
[2021-08-30] MEDS: SNACK - Diabetic Appropriate PO SCH (21:26)
[2021-08-30] MEDS: PROVENTIL NEB TX 0.083% 2.5MG/ 3ML NEB SCH (21:34)
[2021-08-31] MEDS: ZANAFLEX PO PRN ×2 (00:11→19:46)
[2021-08-31] MEDS: PERCOCET TAB 5/325 MG PO PRN ×2 (00:11→19:46)
[2021-08-31] MEDS: K-DUR TAB 20 MEQ PO PRN (00:11)
[2021-08-31] MEDS: NS 1,000 ML IV 1,000 ML IV SCH ×4 (00:12→19:46)
[2021-08-31] MEDS: PROTONIX INJ 40 MG VIAL IVP SCH ×3 (00:12→20:09)
[2021-08-31] MEDS: REGLAN INJ 10 MG VIAL IVP SCH ×5 (00:13→22:02)
--- NOTE | 2021-08-31 01:27 | RAD ---
HISTORYABD PAIN Relevant Clinical InformationSTUDYACUTE ABDOMEN SERIESCOMPARISONNone.FINDINGSThe trachea is midline. The cardiac silhouette reveals both right and left ventricular hypertrophy with mild cardiomegaly.]. [The lungs are clear without focal mass or consolidation. There is no effusion or pneumothorax.] [The bony thorax is unremarkable]. The patient is status post remote anterior cervical interbody fusion of the lower cervical spine with a fixation plate seen involving at least 3 levels.Flat plate and upright evaluation of the abdomen demonstrates a nonobstructive bowel gas pattern. There is no pneumoperitoneum. No pathological soft tissue mass or calcification can be observed. The bony structures are grossly intact. There is evidence for lumbosacral interbody fusion involving L3, L4, L5 and S1. There are cholecystectomy clips in the gallbladder fossa.IMPRESSION1. [No acute infiltrates or effusions. Mild cardiomegaly.]2. [No evidence for acute abdominal pathology identified.]Electronically signed by: Brynn Springer (August 31, 2021 01:26:38)
[2021-08-31 04:11] LABS: BASOPHILS # (AUTO) 0.1 X10^3/uL (0.0-0.1); EOSINOPHILS # (AUTO) 0.2 x10^3/uL (0.0-0.2); HEMOGLOBIN 11.2 g/dL (12.0-16.0); MEAN CORPUSCULAR HEMOGLOBIN 21.8 pg (27.0-34.0); WHITE BLOOD COUNT 6.6 X10^3/uL (3.6-10.0)
[2021-08-31 04:15] LABS: LYMPHOCYTES # (AUTO) 1.9 X10^3/uL (1.3-2.9); LYMPHOCYTES % (AUTO) 29.6 % (21.0-51.0); MEAN CORPUSCULAR HGB CONC 31.2 g/dL (33.0-35.0); MEAN CORPUSCULAR VOLUME 70.1 fL (80.0-100.0); MEAN PLATELET VOLUME 9.6 fL (7.4-11.0); MONOCYTES # (AUTO) 0.5 x10^3/uL (0.3-0.8); MONOCYTES % (AUTO) 7.3 % (0.0-13.0); NEUTROPHILS # (AUTO) 3.9 x10^3/uL (2.2-4.8); NEUTROPHILS % (AUTO) 59.1 % (42.0-75.0); RED BLOOD COUNT 5.13 X10^6/uL (3.5-5.4); RED CELL DISTRIBUTION WIDTH 14.6 % (11.6-16.5)
[2021-08-31 04:34] LABS: ALBUMIN 2.5 g/dL (3.4-5.0); CALCIUM 8.3 mg/dL (8.5-10.1); CARBON DIOXIDE 27.9 mmol/L (21-32); COR CA(FOR HYPOALB) 9.5 mg/dL (8.5-10.1); CREATININE 1.25 mg/dL (0.55-1.02); TOTAL PROTEIN 6.4 g/dL (6.4-8.2)
[2021-08-31 04:47] LABS: GIANT PLATELET RARE; HYPOCHROMASIA 1+; PLATELET MORPHOLOGY COMMENT ABNORMAL (NORMAL)
[2021-08-31 04:48] LABS: MICROCYTOSIS SLIGHT; TARGET CELLS PRESENT
[2021-08-31] MEDS: PROVENTIL NEB TX 0.083% 2.5MG/ 3ML NEB SCH ×4 (04:51→20:18)
--- NOTE | 2021-08-31 08:48 | DR.H&P ---
H&P - History & Physical for Day of: H&P Date: 08/30/21 - Chief Complaint Chief Complaint: ABDOMINAL PAIN, N/V "FOOD STAYING ON STOMACH" - History of Present Illness History of Present Illness: PT IS 66 BF DIRECT ADMIT FROM DR CM OFFICE WITH CO UPPER ABDOMINAL PAIN, CANT EAT, "FOOD STAYING ON STOMACH" PT HAS PMH OF DM, GASTROPARESIS, HTN, OA. PT HAS BEEN ON PPI THERAPY AND NAUSEA CONTROL WITHOUT IMPROVEMENT. - Past Medical History Past Medical History: Hypertension, Diabetes, Seizures, COPD, Asthma, Arthritis Additional Medical History: TIA, Recurrent Ear infections, Cataracts, Diverticulosis, Constipation, Rheumatoid Arthritis, Throat CA, recurrent UTI's - Past Surgical History Surgical History: Cholecystectomy, Hysterectomy, Ortho Surgery Additional Surgical History: Right knee, Neck surgery due to neck fracture. - Family History Family Medical History: Diabetes Mellitus, Cancer, [place], Sudden Cardiac , Hypertension - Social History Does patient currently use any type of tobacco product: No Have you used tobacco products in the last 12 months: No Type of Tobacco Use: None Does any household member use tobacco: No Alcohol Use: None - Medications Home Medications: No Known Drug Allergies Allergy (Verified 11/11/18 04:45) CONTINUE taking the following medications duloxetine 60 mg PO DAILYAC 08/30/21 [History] empagliflozin [Jardiance] 25 mg PO DAILY 08/30/21 [History] insulin glargine-lixisenatide [Soliqua 100/33] SUBCUT 08/30/21 [History] olmesartan-hydrochlorothiazide 1 tab PO DAILY 08/30/21 [History] potassium chloride [Klor-Con M20] 10 meq PO DAILY 08/30/21 [History] - Review of Systems Constitutional: Weakness Eyes: No Symptoms Reported ENT: No Symptoms Reported Respiratory: No Symptoms Reported Gastrointestinal: Nausea, Vomiting, Abdominal Pain Genitourinary: No Symptoms Reported Musculoskeletal: Back Pain, Neck Pain Skin: No Symptoms Reported Neurological: No Symptoms Reported - Physical Exam Vital Signs: Temperature 98.4 F Pulse Rate 85 Respiratory Rate 17 Blood Pressure [Left Arm] 128/60 Blood Pressure [Right Arm] 128/64 Blood Pressure 137/64 O2 Sat by Pulse Oximetry 100 Oriented: Normal Eyes: Normal Ear: Normal Nose: Normal Throat: Normal Cardiovascular: Normal : Normal Auscultation: Bowel Sounds: Normal Tenderness: RUQ, LUQ, Epigastric Skin: Decreased Turgur Musculoskeletal: Back:Thoracic, Back:Lumbar Psychiatric: Anxiety Affect: Anxious Speech Pattern: Clear, Appropriate - Assessment/Plan (1) Gastroparesis Status: Acute Plan: ADMIT, GENTLE IV HYDRATION. BS CONTROL, BP MONITORING. PPI THERAPY, IV REGLAN. VERIFY HOME MEDICATION, AMYLASE AND LIPASE ON ADMISSION LABS. CT ABD/PELVIS WITH PO CONTRAST, NPO AFTER MIDNIGHT (2) Abdominal pain, acute, epigastric Status: Acute (3) Diabetes Status: Chronic (4) Hypertension Status: Chronic (5) GERD (gastroesophageal reflux disease) Status: Chronic (6) Degenerative disc disease, lumbar Status: Chronic - Allergies Allergies/Adverse Reactions: Allergies Allergy/AdvReac Type Severity Reaction Status Date / Time No Known Drug Allergies Allergy Verified 11/11/18 04:45
[2021-08-31] MEDS: COZAAR PO SCH (09:53)
--- NOTE | 2021-08-31 11:52 | CT ---
HISTORYABD PAIN, NAUSEAAbdominal painStudy: CT abdomen and pelvis without contrastComparison: Abdominopelvic CT examination dated September 07, 2020.Technique: Multiple axial images of the abdomen and pelvis were obtained without IV contrast. Oral contrast was not administered. Dose reduction techniques including Automated Exposure Control (AEC) and adjustment of mA and kV were utilized.FINDINGS:Please note evaluation is limited without IV contrast.The lung bases are clear. The unenhanced spleen, liver and adrenal glands are unremarkable. The gallbladder has been removed. No renal calculi or obstructive uropathy. The visualized ureters are unremarkable. The pancreas is unremarkable appearance.No free intraperitoneal air. No evidence of intestinal obstruction or inflammation. Appendix is normal. There is moderate retained stool in the colon. No ascites.Interbody fusion and laminectomy of the spine is noted spanning L3-S1. Metallic artifact limits evaluation. No aortic aneurysm. No bulky adenopathy identified. Urinary bladder is unremarkable. The uterus is enlarged and lobulated with calcifications compatible with underlying fibroids. Small fat containing umbilical herniaIMPRESSION ABDOMEN/PELVIS:No acute abdominopelvic process or changes identified.Leiomyomatous uterus.Postsurgical spinal changes remain, as described above.Small fat containing umbilical hernia.Electronically signed by: PRECIOUS ECHAVARRIA III (August 31, 2021 11:51:40)
--- NOTE | 2021-08-31 12:05 | PCM.PROG ---
Progress Note - Subjective Subjective: Patient is a 66 year old AAF who was admitted as per HPI. Patient reports improvement in symptoms. Patient states she does not feel back to herself yet. Patient is pending imaging studies. Labs and MAR reviewed. No new concerns at present. - Past Medical Family Social History Past Med/Fam/Surg Hx: No changes since H&P Allergies: Allergies No Known Drug Allergies Allergy (Verified 11/11/18 04:45) - Review of Systems ROS: No change since H&P - Vital Signs and I&O's Vital Signs: Temperature 98.4 F Pulse Rate 77 Respiratory Rate 10 Blood Pressure [Left Arm] 128/60 Blood Pressure [Right Arm] 128/64 Blood Pressure 118/58 O2 Sat by Pulse Oximetry 100 Intake and Output: Intake & Output 08/28/21 08/29/21 08/30/21 08/31/21 23:59 23:59 23:59 23:59 Intake Total 462 / 462 349 / 349 Balance 462 / 462 349 / 349 - Physical Exam Oriented: Normal Eyes: Normal Ear: Normal Nose: Normal Throat: Normal Respiratory: Normal Cardiovascular: Normal : Normal Auscultation: Bowel Sounds: Normal Palpation: Normal Tenderness: RUQ, LUQ, Epigastric Skin: Normal Musculoskeletal: Back:Thoracic, Back:Lumbar Psychiatric: Normal Mood Description: Calm Affect: Normal Speech Pattern: Clear, Appropriate - Laboratory and Diagnostics Result Diagrams: 08/31/21 03:00 08/31/21 03:00 Labs: Laboratory WBC 6.6 X10^3/uL (3.6-10.0) 08/31/21 03:00 RBC 5.13 X10^6/uL (3.5-5.4) 08/31/21 03:00 Hgb 11.2 g/dL (12.0-16.0) L 08/31/21 03:00 Hct 36.0 % (36.0-47.0) 08/31/21 03:00 MCV 70.1 fL (80.0-100.0) L 08/31/21 03:00 MCH 21.8 pg (27.0-34.0) L 08/31/21 03:00 MCHC 31.2 g/dL (33.0-35.0) L 08/31/21 03:00 RDW 14.6 % (11.6-16.5) 08/31/21 03:00 Plt Count 201 X10^3/uL (150.0-450.0) 08/31/21 03:00 Plt Count Comment Adequate (ADEQUATE) 08/31/21 03:00 MPV 9.6 fL (7.4-11.0) 08/31/21 03:00 Neut % (Auto) 59.1 % (42.0-75.0) 08/31/21 03:00 Lymph % (Auto) 29.6 % (21.0-51.0) 08/31/21 03:00 [facility] % (Auto) 7.3 % (0.0-13.0) 08/31/21 03:00 Eos % (Auto) 3.0 % (0.9-2.9) H 08/31/21 03:00 Baso % (Auto) 1.0 % (0.2-1.0) 08/31/21 03:00 Neut # (Auto) 3.9 x10^3/uL (2.2-4.8) 08/31/21 03:00 Lymph # (Auto) 1.9 X10^3/uL (1.3-2.9) 08/31/21 03:00 [facility] # (Auto) 0.5 x10^3/uL (0.3-0.8) 08/31/21 03:00 Eos # (Auto) 0.2 x10^3/uL (0.0-0.2) 08/31/21 03:00 Baso # (Auto) 0.1 X10^3/uL (0.0-0.1) 08/31/21 03:00 Absolute Nucleated RBC 0.1 /100WBC 08/31/21 03:00 Total Counted 100 08/30/21 18:23 Neutrophils % (Manual) 52 % (39-76) 08/30/21 18:23 Lymphocytes % (Manual) 38 % (13-43) 08/30/21 18:23 Monocytes % (Manual) 7 % (4-9) 08/30/21 18:23 Eosinophils % (Manual) 3 % (0-6) 08/30/21 18:23 Plt Clumps, EDTA Rare 08/30/21 18:23 Giant Platelets Rare 08/31/21 03:00 Plt Morphology Comment Abnormal (NORMAL) A 08/31/21 03:00 RBC Morphology Abnormal (NORMAL) A 08/31/21 03:00 Hypochromasia 1+ A 08/31/21 03:00 Microcytosis Slight A 08/31/21 03:00 Target Cells Present 08/31/21 03:00 Sodium 140 mmol/L (136-145) 08/31/21 03:00 Corrected Sodium 142 mmol/L (136-145) 08/31/21 03:00 Potassium 3.6 mmol/L (3.5-5.1) 08/31/21 03:00 Chloride 105 mmol/L (98-107) 08/31/21 03:00 Carbon Dioxide 27.9 mmol/L (21-32) 08/31/21 03:00 BUN 16 mg/dL (7-18) 08/31/21 03:00 Creatinine 1.25 mg/dL (0.55-1.02) H 08/31/21 03:00 Est GFR (MDRD) Af Amer 55 (>60) L 08/31/21 03:00 Est GFR (MDRD) Non-Af 45 (>60) L 08/31/21 03:00 Glucose 178 mg/dL (65-99) H 08/31/21 03:00 POC Glucose (mg/dL) 156 mg/dL (65-99) H 08/31/21 11:30 Calcium 8.3 mg/dL (8.5-10.1) L 08/31/21 03:00 Corrected Calcium 9.5 mg/dL (8.5-10.1) 08/31/21 03:00 Magnesium 2.0 mg/dL (1.7-2.9) 08/31/21 03:00 Total Bilirubin 0.30 mg/dL (0.2-1.0) 08/31/21 03:00 AST 35 Units/L (15-37) 08/31/21 03:00 ALT 22 Units/L (12-78) 08/31/21 03:00 Alkaline Phosphatase 116 Units/L (46-116) 08/31/21 03:00 Total Protein 6.4 g/dL (6.4-8.2) 08/31/21 03:00 Albumin 2.5 g/dL (3.4-5.0) L 08/31/21 03:00 Globulin 3.9 g/dL (2.5-4.5) 08/31/21 03:00 Albumin/Globulin Ratio 0.6 Ratio (1.1-2.1) L 08/31/21 03:00 Amylase 43 Units/L (25-115) 08/30/21 18:23 Lipase 62 Units/L (73-393) L 08/30/21 18:23 Specimen Type Clean catch urine 08/30/21 19:20 Urine Color Straw (YELLOW) 08/30/21 19:20 Urine Appearance Clear (CLEAR) 08/30/21 19:20 Urine pH 7.0 (5.0 - 8.0) 08/30/21 19:20 Ur Specific [place] 1.010 (1.000-1.030) 08/30/21 19:20 Urine Protein Negative (NEGATIVE) 08/30/21 19:20 Urine Glucose (UA) 4+ (NEGATIVE) 08/30/21 19:20 Urine Ketones Negative (NEGATIVE) 08/30/21 19: Urine Blood Negative (NEGATIVE) 08/30/21 19:20 Urine Nitrite Negative (NEGATIVE) 08/30/21 19:20 Urine Bilirubin Negative (NEGATIVE) 08/30/21 19:20 Urine Urobilinogen 1+ (NORMAL) 08/30/21 19:20 Ur Leukocyte Esterase Negative (NEGATIVE) 08/30/21 19:20 Urine RBC 0-2 /HPF (0-3) 08/30/21 19:20 Urine WBC 0-2 /HPF (0-5) 08/30/21 19:20 Ur Squamous Epith Cells Few /HPF (NEGATIVE) 08/30/21 19:20 Urine Bacteria Trace /HPF (NEGATIVE) 08/30/21 19:20 Urine Yeast Rare /HPF (NEGATIVE) 08/30/21 19:20 Ur Culture Indicated? No/not indicated 08/30/21 19:20 - Plan (1) Abdominal pain, acute, epigastric Status: Acute (2) Gastroparesis Status: Acute Plan: GENTLE IV HYDRATION. BS CONTROL, BP MONITORING. PPI THERAPY, IV REGLAN. AMYLASE AND LIPASE. CT ABD/PELVIS WITH PO CONTRAST, NPO AFTER MIDNIGHT (PENDING) (3) Nausea & vomiting Status: Acute (4) Diabetes Status: Chronic (5) Hypertension Status: Chronic (6) GERD (gastroesophageal reflux disease) Status: Chronic (7) Degenerative disc disease, lumbar Status: Chronic
[2021-08-31] MEDS: NovoLIN R (or HumuLIN R) SUBCUT PRN ×2 (16:25→20:13)
[2021-08-31] MEDS: SNACK - Diabetic Appropriate PO SCH (19:47)
[2021-09-01] MEDS: PERCOCET TAB 5/325 MG PO PRN (03:42)
[2021-09-01] MEDS: REGLAN INJ 10 MG VIAL IVP SCH ×2 (04:13→11:45)
[2021-09-01 04:54] LABS: BASOPHILS % (AUTO) 0.6 % (0.2-1.0); EOSINOPHILS # (AUTO) 0.2 x10^3/uL (0.0-0.2); EOSINOPHILS % (AUTO) 2.6 % (0.9-2.9); HEMATOCRIT 35.6 % (36.0-47.0); HEMOGLOBIN 11.1 g/dL (12.0-16.0); LYMPHOCYTES # (AUTO) 1.8 X10^3/uL (1.3-2.9); LYMPHOCYTES % (AUTO) 25.4 % (21.0-51.0); MEAN CORPUSCULAR HEMOGLOBIN 21.8 pg (27.0-34.0); MEAN CORPUSCULAR HGB CONC 31.3 g/dL (33.0-35.0); MEAN CORPUSCULAR VOLUME 69.8 fL (80.0-100.0); MEAN PLATELET VOLUME 9.6 fL (7.4-11.0); MONOCYTES # (AUTO) 0.5 x10^3/uL (0.3-0.8); MONOCYTES % (AUTO) 6.5 % (0.0-13.0); NEUTROPHILS # (AUTO) 4.6 x10^3/uL (2.2-4.8); NEUTROPHILS % (AUTO) 64.9 % (42.0-75.0); RED CELL DISTRIBUTION WIDTH 14.5 % (11.6-16.5); WHITE BLOOD COUNT 7.1 X10^3/uL (3.6-10.0)
[2021-09-01 05:13] LABS: ALANINE AMINOTRANSFERASE 22 Units/L (12-78); ALBUMIN 2.7 g/dL (3.4-5.0); ALKALINE PHOSPHATASE 126 Units/L (46-116); AMYLASE 36 Units/L (25-115); ASPARTATE AMINO TRANSFERASE 30 Units/L (15-37); BLOOD UREA NITROGEN 12 mg/dL (7-18); CALCIUM 8.2 mg/dL (8.5-10.1); CARBON DIOXIDE 24.8 mmol/L (21-32); CHLORIDE 106 mmol/L (98-107); COR CA(FOR HYPOALB) 9.2 mg/dL (8.5-10.1); COR NA(FOR HYPERGLY) 141 mmol/L (136-145); CREATININE 0.96 mg/dL (0.55-1.02); LIPASE 60 Units/L (73-393); SODIUM 139 mmol/L (136-145); TOTAL PROTEIN 6.7 g/dL (6.4-8.2); eGFR NON BLACK RACES > 60 (>60)
[2021-09-01] MEDS: NovoLIN R (or HumuLIN R) SUBCUT PRN ×2 (05:32→11:45)
[2021-09-01 05:38] LABS: HYPOCHROMASIA 1+; MICROCYTOSIS 1+; PLATELET MORPHOLOGY COMMENT NORMAL (NORMAL)
[2021-09-01 05:39] LABS: TARGET CELLS PRESENT
[2021-09-01] MEDS: PROVENTIL NEB TX 0.083% 2.5MG/ 3ML NEB SCH ×2 (06:08→13:30)
[2021-09-01] MEDS: PROTONIX INJ 40 MG VIAL IVP SCH (08:20)
[2021-09-01] MEDS: COZAAR PO SCH (08:21)
[2021-09-01] MEDS: K-DUR TAB 20 MEQ PO PRN (08:21)
[2021-09-01] MEDS: NS 1,000 ML IV 1,000 ML IV SCH (09:02)
[2021-09-01 12:07] VITALS: BP 135/67
--- NOTE | 2021-09-16 22:50 | PCM.DCPLAN ---
Discharge Plan - Discharge Plan Hospital Course: Admit date 08/30/21 Discharge date 09/01/21 DOS 09/01/21 Admit diagnosis(1) Gastroparesis (2) Abdominal pain, acute, epigastric (3) Diabetes (4) Hypertension (5) GERD (gastroesophageal reflux disease) (6) Degenerative disc disease, lumbar Discharge diagnosis SAME Hospital Course PT IS 66 BF DIRECT ADMIT FROM DR CM OFFICE WITH CO UPPER ABDOMINAL PAIN, CANT EAT, "FOOD STAYING ON STOMACH" PT HAS PMH OF DM, GASTROPARESIS, HTN, OA. PT HAS BEEN ON PPI THERAPY AND NAUSEA CONTROL WITHOUT IMPROVEMENT. PATIENT WAS TREATED WITH IV FLUIDS AND NAUSEA MEDICATIONS. pATIENT'S DIET WAS PROGRESSED TOLERATED. PATIENT REPORTED SYMPTOMS RESOLVED AND SHE FELT READY FOR DISCHARGE. PATIENT WAS DISCHARGED HOME AND INSTRUCTED TO FOLLOW UP IN 1 WEEK WITH PCP. PATIENT WAS ABLE TO TOLERATE FOOD AND LIQUIDS. LAS RETURNED TO BASELINE. IMAGING WAS UNREMARKABLE FOR ACUTE ABNORMALITY. Discharge time spent >35 mins. Disposition: 01 HOME, SELF-CARE Condition: Stable Health Concerns: Post Hospitalization: new medications and changes needed to prevent readmission or further decline. Pt educated and given instructions on all concerns. Care Plan Goals: Problem: Pain/Alteration in Comfort Goal: Improve/ Resolve Pain; Achieve Pain Tolerance Instructions: Take pain medications as prescribed. Contact your primary care provider if your pain is unrelieved or worsens. Follow up with primary care provider as directed. Plan of Treatment: Continue with present treatment and follow up plan. Pt is to keep follow up appointment as instructed and take medications as ordered. Prescriptions: New azithromycin [Zithromax Z-Noe] 250 mg Tablet See Rx Instructions .ROUTE .COMPLEX Qty: 1 RF: 0 Transmission Status: Received by [facility][id number] Continued aspirin 81 mg tablet,delayed release (DR/EC) 1 tab PO DAILY duloxetine 60 mg capsule,delayed release(DR/EC) 60 mg PO DAILYAC gabapentin 300 MG capsule 600 mg PO TID Jardiance 25 mg tablet 25 mg PO DAILY meloxicam 15 MG tablet 7.5 mg PO DAILY olmesartan-hydrochlorothiazide 20-12.5 mg tablet 1 tab PO DAILY oxycodone-acetaminophen 10-325 mg tablet 1 tab PO Q6H PRN potassium chloride [Klor-Con M20] 20 MEQ tablet,ER particles/crystals 10 meq PO DAILY Soliqua 100/33 100 unit-33 mcg/mL Insulin Pen 60 unit SUBCUT QAM tizanidine 4 mg tablet 1 tab PO Q8H PRN - Orders to Discharge Patient Discharge Orders: Discharge (Routine); Ordered 09/01/21 Ordered By: Nyasia Schofield - Follow ups/Referrals Follow ups/Referrals: CAS AVILA [Primary Care Provider] - 1 WEEK - Instructions Instructions: Hypokalemia, Chronic Obstructive Pulmonary Disease, Ltkz-cr-Udtm, Type 2 Diabetes Mellitus, Self-Care, Adult, Duag-ly-Jjpq, Nausea and Vomiting, Adult, Dswt-uc-Nmpe, Hypertension, Adult, Cvgq-hn-Zdcj, Gastroesophageal Reflux Disease, Adult, Urrc-yh-Orbi, Gastroparesis Forms: Precautions for COVID19, [facility], Patient Portal, Social Distancing Print Language: BULGARIAN - Patient Education Addl Reference Links: Gastroparesis [email or web address]&patientPerson.administrativeGenderCode.c=F&p atientPerson.administ rativeGenderCode.dn=Female&age.v.v=66&age.v.u=a&performer=PROV&informationRecipi ent=PAT&performer.languageCode.c=en&mainSearchCriteria.v.x=[id number]&mainSearchC riteria.v.cs=[id number]&main SearchCriteria.v.dn=Gastroparesis&mainSearchCriteria.v.i3=386.3&mainSearchCriter ia.v.cs1=[id number]&mainSearchCriteria.v.dn1=Gastroparesis&mainSear chCriteria.v.c2=K31.84&mainSearchCriteri a.v.cs2=[id number]&mainSearchCriteria.v.dn2=Gastroparesis&f=[id number] -[id number]
== END 2021-09-01 13:25 | disposition home or self-care (01) ==
LOC: ICU
PROVIDERS: ADMIT Internal Medicine; ATTEND Internal Medicine
DX: M19.90 Unspecified osteoarthritis, unspecified site; K21.9 Gastro-esophageal reflux disease without esophagitis; J44.9 Chronic obstructive pulmonary disease, unspecified; M51.36 Other intervertebral disc degeneration, lumbar region; R10.13 Epigastric pain; E11.65 Type 2 diabetes mellitus with hyperglycemia; Z79.899 Other long term (current) drug therapy; I10 Essential (primary) hypertension; E11.43 Type 2 diabetes mellitus with diabetic autonomic (poly)neuropathy; Z79.4 Long term (current) use of insulin

== ENCOUNTER 2024-06-09 16:49 | Observation (INO) ==
[2024-06-09 17:01] VITALS: BMI 32.9
[2024-06-09 17:50] LABS: HEMOGLOBIN 12.6 g/dL (12.0-16.0); MEAN PLATELET VOLUME 9.4 fL (7.4-11.0); NEUTROPHILS % (AUTO) 53.8 % (42.0-75.0)
--- NOTE | 2024-06-09 17:50 | EKG ---
Test Reason : possible cva Blood Pressure : */* mmHG Vent. Rate : 82 BPM Atrial Rate : 82 BPM P-R Int : 216 ms QRS Dur : 134 ms QT Int : 434 ms P-R-T Axes : 60 -23 126 degrees QTc Int : 507 ms Sinus rhythm with 1st degree AV block Left bundle branch block Abnormal ECG When compared with ECG of 15-NOV-2023 11:12, IA interval has increased QRS axis shifted right Confirmed by Stas Martinez MD ([id number]) on 06/10/2024 7:41:39 AM Referred By: Confirmed By: Stas Martinez MD
[2024-06-09 17:53] LABS: INR 1.08 (0.8-1.3)
[2024-06-09 17:56] LABS: BASOPHILS # (AUTO) 0.1 X10^3/uL (0.0-0.1); BASOPHILS % (AUTO) 1.5 % (0.2-1.0); EOSINOPHILS # (AUTO) 0.3 x10^3/uL (0.0-0.2); EOSINOPHILS % (AUTO) 3.8 % (0.9-2.9); HEMATOCRIT 39.9 % (36.0-47.0); LYMPHOCYTES # (AUTO) 2.3 X10^3/uL (1.3-2.9); LYMPHOCYTES % (AUTO) 33.2 % (21.0-51.0); MEAN CORPUSCULAR HEMOGLOBIN 22.5 pg (27.0-34.0); MEAN CORPUSCULAR HGB CONC 31.6 g/dL (33.0-35.0); MEAN CORPUSCULAR VOLUME 71.3 fL (80.0-100.0); MONOCYTES # (AUTO) 0.5 x10^3/uL (0.3-0.8); MONOCYTES % (AUTO) 7.7 % (0.0-13.0); NEUTROPHILS # (AUTO) 3.7 x10^3/uL (2.2-4.8); PLATELET COUNT 235 X10^3/uL (150.0-450.0); RED CELL DISTRIBUTION WIDTH 15.1 % (11.6-16.5); WHITE BLOOD COUNT 6.8 X10^3/uL (3.6-10.0)
[2024-06-09 18:03] LABS: ALBUMIN 2.9 g/dL (3.4-5.0); CALCIUM 8.8 mg/dL (8.5-10.1); CARBON DIOXIDE 30.1 mmol/L (21-32); CHOL/HDL RATIO 3.8 (0.0-5.0); COR CA(FOR HYPOALB) 9.7 mg/dL (8.5-10.1); CREATININE 1.17 mg/dL (0.55-1.02); POTASSIUM 3.3 mmol/L (3.5-5.1); TOTAL PROTEIN 7.7 g/dL (6.4-8.2)
[2024-06-09 18:21] LABS: PLATELET MORPHOLOGY COMMENT NORMAL (NORMAL)
[2024-06-09 18:22] LABS: HYPOCHROMASIA 1+; MICROCYTOSIS SLIGHT; TARGET CELLS PRESENT
[2024-06-09 18:45] LABS: BILIRUBIN,URINE NEGATIVE (NEGATIVE); BLOOD/HEMOGLOBIN,URINE NEGATIVE (NEGATIVE); GLUCOSE, URINE 4+ (NEGATIVE); KETONES,URINE NEGATIVE (NEGATIVE); LEUKOCYTE ESTERASE ,URINE NEGATIVE (NEGATIVE); NITRITES,URINE NEGATIVE (NEGATIVE); PROTEIN,URINE NEGATIVE (NEGATIVE); UROBILINOGEN,URINE NORMAL (NORMAL)
[2024-06-09 18:47] LABS: APPEARANCE,URINE HAZY (CLEAR); COLOR,URINE YELLOW (YELLOW)
--- NOTE | 2024-06-09 18:49 | CT ---
EXAM:CT HEAD WITHOUT IV CONTRASTHISTORY:Worsening headache with visual issuesCOMPARISON:None.TECHNIQUE:Axial images were acquired of the head without IV contrast. Coronal and sagittal images were provided. All images were reviewed in a variety of windows and levels.LIMITATIONS: Please note that CT has low sensitivity and accuracy for identifying acute infarction. In addition, there are portions of the brain that are affected by beam hardening artifact which further greatly limits identification of an acute infarct.RADIATION REDUCTION TECHNIQUE: Automated exposure control, Adjustment of the mA and/or kV according to patient size, or iterative reconstruction techniques were used.FINDINGS:There is diffuse cerebral atrophy with a regional distribution of low attenuation along the periventricular white matter most likely representing small vessel ischemic changes which are to a degree that would be considered within normal limits for the patient's stated age.There is no evidence of an acute intracranial bleed.There is no evidence of a mass or midline shift.There is no evidence of an extra-axial fluid collection.Focal region of hypodensity is seen within the left occipital lobe. This may represent evolving infarct. The mayes-white matter differentiation is within normal limits.The visualized bones are unremarkable.The visualized sinuses are clear.The mastoid air cells are well-aerated.IMPRESSION:1. INVOLUTIONAL CHANGES ARE PRESENT WITH FINDINGS SUGGESTING SMALL VESSEL ISCHEMIC DISEASE WHICH IS TO A DEGREE THAT WOULD BE CONSIDERED WITHIN NORMAL LIMITS FOR THE PATIENT'S STATED AGE.2. THERE IS NO EVIDENCE OF ACUTE INTRACRANIAL BLEED.3. FOCAL REGION OF HYPODENSITY IS SEEN WITHIN THE LEFT OCCIPITAL LOBE. THIS MAY REPRESENT EVOLVING INFARCT.THIS IS AN ELECTRONICALLY VERIFIED FINAL REPORT06/09/2024 6:46 PM - Electronically signed by Mario Coreas MD
--- NOTE | 2024-06-09 20:01 | DR.GENAD ---
HPI Time Seen Time Seen by Provider: 06/09/24 17:31 PCP Primary Care Physician: natahsa grossman Complaint/Symptoms Chief Complaint Doctors Comments: 69 yo F, hx of prior CVA with residual L-sided weakness, states yesterday she started having a bad headache about 11am states she couldnt pull her thoughts together and the right side of her face felt numb along with her right arm and leg states it has came back some but the right arm and leg still feels a little numb. Patient states she having pain in the occipital area. Daughter at bedside states that pt's speech is largely back to baseline, however remains slightly slurred. Pt states RUE & RLE remain slightly weak. Chief Complaint:: R-sided weakness, slurred speech COVID-19 Coronavirus risk:travel/contact w/high risk person: No Has patient experienced Coronavirus symptoms: No Source History Provided: Patient Mode of Arrival Mode of Arrival: Ambulatory Timing Onset of Chief Complaint: 06/08/24 PMH PMH Past Medical History: Yes Past Medical History: Arthritis, Asthma, COPD, Diabetes, GERD, Hypertension, [place] and Seizures Past Medical History Comment: x2 TIA Past Surgical History: Yes Surgical History: Cholecystectomy, Hysterectomy and Ortho Surgery Past Surgical History Comment: x2 neck surgery, back Family History History of Family Medical Conditions: Yes Family Medical History: Diabetes Mellitus, Cancer, [place], Sudden Cardiac and Hypertension Social History Does patient currently use any type of tobacco product: No Have you used tobacco products in the last 12 months: No Type of Tobacco Use: None Does any household member use tobacco: No Alcohol Use: None Do you use any recreational Drugs:: No Lives With: Family Lives Where: Home Travel Risk Coronavirus risk:travel/contact w/high risk person: No Has patient experienced Coronavirus symptoms: No Infectious screening In the last 2 months have you had wt loss of >10#?: NO Have you had fever, night sweats or hemotysis?: No Have you traveled outside the country in the last 6 months?: No Isolation: Standard ROS Review of Systems Neurological: Numbness (RUE & RLE), Weakness (RUE & RLE) and Speech Problem All Other Systems: Reviewed and Negative PE Vital Signs Vitals: Vital Signs Temperature 99.4 F Pulse Rate 80 Pulse Rate 77 Pulse Rate 79 Pulse Rate 79 Pulse Rate 79 Pulse Rate 81 Pulse Rate 80 Pulse Rate 83 Pulse Rate 91 Respiratory Rate 15 Respiratory Rate 15 Respiratory Rate 22 Respiratory Rate 18 Respiratory Rate 14 Respiratory Rate 21 Respiratory Rate 16 Blood Pressure 124/59 Blood Pressure 151/75 O2 Sat by Pulse Oximetry 98 O2 Sat by Pulse Oximetry 98 O2 Sat by Pulse Oximetry 99 O2 Sat by Pulse Oximetry 98 O2 Sat by Pulse Oximetry 97 O2 Sat by Pulse Oximetry 98 O2 Sat by Pulse Oximetry 95 General Limitations: No Limitations General Appearance: Alert and In No Apparent Distress Head Head Exam: Normal Inspection Eyes Eye exam: Normal Appearance ENT ENT Exam: Normal Exam External Ear Exam: Normal External Inspection TM/Canal Exam: Bilateral: Normal Nose Exam: Normal Nose Exam Mouth Exam: Normal Inspection Throat Exam: Normal Inspection Neck Neck Exam: Normal Inspection Chest Chest Inspection: Normal Inspection Respiratory Respiratory Exam: Normal Lung Sounds Bilat Respiratory Exam: Bilateral: Clear to Auscultation Cardiovascular Cardiovascular Exam: Regular Rate and Normal Rhythm Abdominal Exam Abdominal Exam: Normal Inspection, Normal Bowel Sounds and Soft Extremities Extremities Exam: Normal Inspection Back Back Exam: Normal Inspection Neurologic Neurological Exam: Oriented X3, CN II-XII Intact and Motor Sensory Deficit (4+/5 strength in RUE, 3+/5 in RLE. Sensation intact. Speech mildly slurred.) Psychiatric Psychiatric Exam: Normal Affect and Normal Mood Skin Skin Exam: Warm, Dry, Intact and Normal Color ROR Labs Reviewed Laboratory Results Reviewed?: Yes 06/09/24 17:26 06/09/24 17:26 Laboratory: WBC 6.8 X10^3/uL (3.6-10.0) 06/09/24 17: RBC 5.60 X10^6/uL (3.5-5.4) H 06/09/24 17:26 Hgb 12.6 g/dL (12.0-16.0) 06/09/24 17:26 Hct 39.9 % (36.0-47.0) 06/09/24 17: MCV 71.3 fL (80.0-100.0) L 06/09/24 17:26 MCH 22.5 pg (27.0-34.0) L 06/09/24 17:26 MCHC 31.6 g/dL (33.0-35.0) L 06/09/24 17: RDW 15.1 % (11.6-16.5) 06/09/24 17:26 Plt Count 235 X10^3/uL (150.0-450.0) 06/09/24 17: Plt Count Comment Adequate (ADEQUATE) 06/09/24 17: MPV 9.4 fL (7.4-11.0) 06/09/24 17:26 Neut % (Auto) 53.8 % (42.0-75.0) 06/09/24 17: Lymph % (Auto) 33.2 % (21.0-51.0) 06/09/24 17:26 [place] % (Auto) 7.7 % (0.0-13.0) 06/09/24 17:26 Eos % (Auto) 3.8 % (0.9-2.9) H 06/09/24 17:26 Baso % (Auto) 1.5 % (0.2-1.0) H 06/09/24 17: Neut # (Auto) 3.7 x10^3/uL (2.2-4.8) 06/09/24 17:26 Lymph # (Auto) 2.3 X10^3/uL (1.3-2.9) 06/09/24 17:26 [place] # (Auto) 0.5 x10^3/uL (0.3-0.8) 06/09/24 17:26 Eos # (Auto) 0.3 x10^3/uL (0.0-0.2) H 06/09/24 17:26 Baso # (Auto) 0.1 X10^3/uL (0.0-0.1) 06/09/24 17: Absolute Nucleated RBC 0.2 /100WBC 06/09/24 17: Total Counted 100 06/09/24 17:26 Neutrophils % (Manual) 56 % (39-76) 06/09/24 17:26 Lymphocytes % (Manual) 35 % (13-43) 06/09/24 17: Monocytes % (Manual) 7 % (4-9) 06/09/24 17:26 Eosinophils % (Manual) 2 % (0-6) 06/09/24 17:26 Plt Morphology Comment Normal (NORMAL) 06/09/24 17: RBC Morphology Abnormal (NORMAL) A 06/09/24 17:26 Hypochromasia 1+ A 06/09/24 17:26 Microcytosis Slight A 06/09/24 17:26 Target Cells Present 06/09/24 17: PT 13.8 SECONDS (11.8-14.3) 06/09/24 17:26 INR Target Range - 06/09/24 17: INR 1.08 (0.8-1.3) 06/09/24 17:26 APTT 20.3 SECONDS (22.9-36.5) L 06/09/24 17:26 PTT Comment - 06/09/24 17:26 Fibrinogen 506 mg/dL (239-489) H 06/09/24 17:26 Sodium 141 mmol/L (136-145) 06/09/24 17:26 Corrected Sodium 144 mmol/L (136-145) 06/09/24 17:26 Potassium 3.3 mmol/L (3.5-5.1) L 06/09/24 17:26 Chloride 102 mmol/L (98-107) 06/09/24 17:26 Carbon Dioxide 30.1 mmol/L (21-32) 06/09/24 17:26 BUN 22 mg/dL (7-18) H 06/09/24 17:26 Creatinine 1.17 mg/dL (0.55-1.02) H 06/09/24 17:26 Est GFR (MDRD) Af Amer 59 (>60) 06/09/24 17:26 Est GFR (MDRD) Non-Af 49 (>60) L 06/09/24 17:26 Glucose 209 mg/dL (65-99) H 06/09/24 17:26 Calcium 8.8 mg/dL (8.5-10.1) 06/09/24 17:26 Corrected Calcium 9.7 mg/dL (8.5-10.1) 06/09/24 17:26 Total Bilirubin 0.30 mg/dL (0.2-1.0) 06/09/24 17:26 AST 21 Units/L (15-37) 06/09/24 17:26 ALT 23 Units/L (12-78) 06/09/24 17:26 Alkaline Phosphatase 118 Units/L (46-116) H 06/09/24 17:26 Creatine Kinase 246 Units/L (26-192) H 06/09/24 17:26 Troponin I High Sens 8.0 ng/L (4.0-60.0) 06/09/24 17:26 Total Protein 7.7 g/dL (6.4-8.2) 06/09/24 17:26 Albumin 2.9 g/dL (3.4-5.0) L 06/09/24 17:26 Globulin 4.8 g/dL (2.5-4.5) H 06/09/24 17:26 Albumin/Globulin Ratio 0.6 Ratio (1.1-2.1) L 06/09/24 17:26 Triglycerides 117 mg/dL (0-150) 06/09/24 17:26 Cholesterol 237 mg/dL (0-200) H 06/09/24 17:26 LDL Cholesterol, Calc 152 mg/dL (0-100) H 06/09/24 17:26 HDL Cholesterol 62 mg/dL (40-60) H 06/09/24 17:26 Cholesterol/HDL Ratio 3.8 (0.0-5.0) 06/09/24 17:26 Specimen Type Clean catch urine 06/09/24 18:29 Urine Color Yellow (YELLOW) 06/09/24 18:29 Urine Appearance Hazy (CLEAR) 06/09/24 18:29 Urine pH 5.0 (5.0 - 8.0) 06/09/24 18:29 Ur Specific [place] 1.015 (1.000-1.030) 06/09/24 18:29 Urine Protein Negative (NEGATIVE) 06/09/24 18:29 Urine Glucose (UA) 4+ (NEGATIVE) 06/09/24 18:29 Urine Ketones Negative (NEGATIVE) 06/09/24 18:29 Urine Blood Negative (NEGATIVE) 06/09/24 18:29 Urine Nitrite Negative (NEGATIVE) 06/09/24 18:29 Urine Bilirubin Negative (NEGATIVE) 06/09/24 18:29 Urine Urobilinogen Normal (NORMAL) 06/09/24 18:29 Ur Leukocyte Esterase Negative (NEGATIVE) 06/09/24 18:29 Opioid Opioid Risk Tool Age (Minh box if 16-45): No History of Preadolescent Sexual Abuse: No Total: 0 Total Score Risk Category: Low Risk Copyright: Shane FISCHER predicting aberrant behaviors Discharge Plan Diagnosis Discharge Problem: Acute CVA (cerebrovascular accident) Discharge Plan Patient Disposition: 09 ADMITTED INPATIENT Condition: Stable Prescriptions: No Action nitroglycerin 0.4 mg tablet, sublingual 0.4 mg sublingual Q5-15M PRN (Reason: chest pain) Qty: 30 3RF Rx Instructions: do not exceed 3 doses per episode metoprolol succinate 25 mg tablet extended release 24 hr 25 mg PO QDAY Qty: 90 3RF aspirin 81 mg tablet,delayed release (DR/EC) 81 mg PO QDAY albuterol sulfate 90 mcg/actuation HFA aerosol inhaler 2 puff inhalation Q4HR isosorbide mononitrate 30 mg tablet extended release 24 hr 30 mg PO QAM Qty: 60 3RF furosemide [Lasix] 40 mg tablet 40 mg PO QAM Qty: 60 3RF Rx Instructions: stop hctz potassium chloride 10 mEq capsule, extended release 10 meq PO QDAY Qty: 60 3RF gabapentin 600 mg tablet 600 mg PO TID insulin lispro [Humalog U-100 Insulin] 100 unit/mL solution DIRECTED insulin glargine [Lantus Solostar U-100 Insulin] 100 unit/mL (3 mL) insulin pen 40 unit SUBCUT BID allopurinol 100 mg tablet 100 mg PO QDAY oxycodone-acetaminophen 10-325 mg tablet 1 tab PO Q6H PRN pantoprazole 40 mg tablet,delayed release (DR/EC) 40 mg PO QDAY olmesartan-hydrochlorothiazide 20-12.5 mg tablet 1 tab PO QDAY Jardiance 25 mg tablet 25 mg PO QDAY Health Concerns: Post Hospitalization: new medications and changes needed to prevent readmission or further decline. Pt educated and given instructions on all concerns. Plan of Treatment: Continue with present treatment and follow up plan. Pt is to keep follow up appointment as instructed and take medications as ordered. Orders to Discharge Patient Discharge Orders: Transfer (Routine); Ordered 06/09/24 Ordered By: Caleb Caputo Follow ups/Referrals Follow ups/Referrals: NATASHA GROSSMAN [Primary Care Provider] - 3 days Instructions Stand Alone Forms: Find Help Web Site, Post Hospital Follow Up Care ADDITIONAL NOTES Additional Notes Additional Notes: Spoke with Dr Henry, advises to admit pt to Dr Jaramillo, requests Carotid Dopp & Echo for am.
[2024-06-09] MEDS: NS 1,000 ML IV 1,000 ML IV SCH (22:01)
[2024-06-09] MEDS ORDERED: CONSULT PHARMACY - POTASSIUM & MAGNESIUM XX SCH (23:00)
[2024-06-09] MEDS: K-DUR TAB 20 MEQ PO SCH (23:59)
[2024-06-09] MEDS: MAG-OX TAB PO SCH (23:59)
[2024-06-10 05:15] LABS: BASOPHILS % (AUTO) 0.7 % (0.2-1.0); EOSINOPHILS # (AUTO) 0.3 x10^3/uL (0.0-0.2); EOSINOPHILS % (AUTO) 4.3 % (0.9-2.9); HEMATOCRIT 38.5 % (36.0-47.0); LYMPHOCYTES # (AUTO) 2.5 X10^3/uL (1.3-2.9); LYMPHOCYTES % (AUTO) 39.4 % (21.0-51.0); MEAN CORPUSCULAR HEMOGLOBIN 22.2 pg (27.0-34.0); MEAN CORPUSCULAR HGB CONC 31.3 g/dL (33.0-35.0); MEAN CORPUSCULAR VOLUME 71.1 fL (80.0-100.0); MEAN PLATELET VOLUME 9.2 fL (7.4-11.0); MONOCYTES # (AUTO) 0.4 x10^3/uL (0.3-0.8); MONOCYTES % (AUTO) 6.3 % (0.0-13.0); NEUTROPHILS # (AUTO) 3.1 x10^3/uL (2.2-4.8); NEUTROPHILS % (AUTO) 49.3 % (42.0-75.0); PLATELET COUNT 229 X10^3/uL (150.0-450.0); RED BLOOD COUNT 5.41 X10^6/uL (3.5-5.4); WHITE BLOOD COUNT 6.3 X10^3/uL (3.6-10.0)
[2024-06-10 05:28] LABS: INR 1.06 (0.8-1.3)
[2024-06-10 05:30] LABS: ALANINE AMINOTRANSFERASE 21 Units/L (12-78); ALBUMIN 2.6 g/dL (3.4-5.0); ALKALINE PHOSPHATASE 110 Units/L (46-116); ASPARTATE AMINO TRANSFERASE 18 Units/L (15-37); BLOOD UREA NITROGEN 19 mg/dL (7-18); CALCIUM 8.5 mg/dL (8.5-10.1); CARBON DIOXIDE 30.4 mmol/L (21-32); CHLORIDE 107 mmol/L (98-107); CHOL/HDL RATIO 3.9 (0.0-5.0); CHOLESTEROL 228 mg/dL (0-200); COR CA(FOR HYPOALB) 9.6 mg/dL (8.5-10.1); COR NA(FOR HYPERGLY) 144 mmol/L (136-145); CREATININE 1.02 mg/dL (0.55-1.02); GLUCOSE 150 mg/dL (65-99); HDL CHOLESTEROL 59 mg/dL (40-60); POTASSIUM 3.4 mmol/L (3.5-5.1); SODIUM 143 mmol/L (136-145); TOTAL PROTEIN 7.2 g/dL (6.4-8.2); TRIGLYCERIDES 83 mg/dL (0-150); eGFR NON BLACK RACES 57 (>60)
[2024-06-10] MEDS ORDERED: CONSULT PHARMACY - POTASSIUM & MAGNESIUM XX SCH (06:00)
[2024-06-10 06:01] LABS: MICROCYTOSIS SLIGHT; PLATELET MORPHOLOGY COMMENT NORMAL (NORMAL); TEAR DROP CELLS SLIGHT
--- NOTE | 2024-06-10 06:36 | RAD ---
EXAM: Portable chest HISTORY: Headache COMPARISON: 02/18/2024 FINDINGS: Heart is mildly enlarged. No congestive heart failure is noted. Lung lewis are clear. No pleura l effusions are identified. Bony thorax is unremarkable. IMPRESSION: Mild cardiomegaly without congestive heart failure Lungs clear THIS IS AN ELECTRONICALLY VERIFIED FINAL REPORT 06/10/2024 6:26 AM - Electronically signed by Mark Lucero MD
--- NOTE | 2024-06-10 08:24 | RAD ---
EXAMINATION: CHEST, 1 VIEW HISTORY: CVA; . COMPARISON STUDY: Chest x-ray 06/09/2024 TECHNIQUE: Single frontal view of the chest FINDINGS: Lungs are expanded. Mild cardiac silhouette enlargement. Normal pulmonary vascular pattern. CP ang les are sharp. Bones are intact. Partially imaged fusion hardware cervical spine. IMPRESSION: Mild cardiac silhouette enlargement. THIS IS AN ELECTRONICALLY VERIFIED FINAL REPORT 06/10/2024 8:21 AM - Electronically signed by Adia Amador MD
[2024-06-10] MEDS: K-DUR TAB 20 MEQ PO SCH (08:30)
[2024-06-10] MEDS: PROVENTIL NEB TX 0.083% 2.5MG/ 3ML NEB SCH (10:10)
[2024-06-10] MEDS: LOVENOX INJ 40 MG SYR SC SCH (10:56)
--- NOTE | 2024-06-10 12:11 | MRI ---
EXAMINATION:BRAIN W/O CONHISTORY:CVA ; .COMPARISON STUDY:CT brain 06/09/2024TECHNIQUE:Sagittal T1, axial T1, axial T2, axial proton density, axial diffusion weighted images and coronal FLAIR images were obtained through the brain.FINDINGS:There is no abnormal low or high signal to suggest acute intracranial hemorrhage or acute stroke. Ventricles and sulci demonstrate atrophy and deep white matter ischemic change. Castellanos-white matter differentiation is maintained throughout. There are no intra-axial or extra-axial collections noted. There are normal flow voids within the middle cerebral arteries as well as the basilar artery.Abnormal signal in the right posterior globe which could represent retinal detachment. Consider ophthalmology evaluation. Globes and retro-orbital structures are otherwise unremarkable. The sinuses demonstrate chronic ethmoid and maxillary sinusitis.. Cerebellopontine angles are normal.On the sagittal images cervicomedullary junction is normal. Normal bone marrow signal is seen within the clivus and cervical spine. Pituitary is unremarkable. Normal midline structures are present.There is no abnormal signal on the FLAIR, diffusion weighted sequences and gradient echo images.No restricted diffusion in the left occipital region. This may represent chronic change..IMPRESSION:No acute intracranial process.Atrophy and deep white matter ischemic changes. Old infarct in the left occipital region. No restricted diffusion in this region.Abnormal signal in the right posterior globe which could represent retinal detachment. Consider ophthalmology evaluation.THIS IS AN ELECTRONICALLY VERIFIED FINAL REPORT06/10/2024 12:08 PM - Electronically signed by Joni Noble MD
--- NOTE | 2024-06-10 12:47 | VAS ---
EXAM:CAROTID USHISTORY:CVA;COMPARISON:None available.TECHNIQUE:Multiple mayes scale, duplex and color flow Doppler images of the right and left carotid arterial system were obtained. The vertebral arterial system was evaluated as well.FINDINGS:Nonocclusive color flow Doppler is seen throughout the right and left carotid arterial system.There is peno-xb-njsnlype atherosclerotic plaque formation of the bilateral carotid bulbs and proximal ICAs with associated intimal thickening but without evidence for high-grade stenosis (>70%) or occlusion of the carotid arteries. The right and left vertebral artery demonstrate antegrade flow.There is patent flow and normal duplex waveforms within the right and left external carotid arteries.Peak right ICA velocity: 76 centimeter/seconds.Peak right CCA velocity: 116 centimeter/seconds.Right ICA to CCA ratio: 0.9.Peak left ICA velocity: 90 centimeter/seconds.Peak left CCA velocity: 90 centimeter/seconds.Left ICA to CCA ratio: 2.0.IMPRESSION:No hemodynamically significant carotid artery stenosis is seen.Mild/moderate bilateral CCA and proximal ICA atherosclerosis.Appropriate, antegrade, vertebral arterial flow seen bilaterally.THIS IS AN ELECTRONICALLY VERIFIED FINAL REPORT06/10/2024 12:44 PM - Electronically signed by Rob Rosenberg MD
[2024-06-10] MEDS: MULTIHANCE INJ VIAL ONE (12:53)
[2024-06-10] MEDS: PERCOCET TAB 5/325 MG PO PRN (16:34)
[2024-06-10] MEDS: NovoLIN R (or HumuLIN R) SUBCUT PRN (18:07)
--- NOTE | 2024-06-10 18:07 | DR.H&P ---
H&P History & Physical for Day of: H&P Date: 06/09/24 Chief Complaint Chief Complaint: SEVERE BOOTHE, RIGHT SIDE WEAKNESS History of Present Illness History of Present Illness: 69 yo F, hx of prior CVA with residual L-sided weakness, states yesterday she started having a bad headache about 11am states she couldnt pull her thoughts together and the right side of her face felt numb along with her right arm and leg states it has came back some but the right arm and leg still feels a little numb. Patient states she having pain in the occipital area. Daughter at bedside states that pt's speech is largely back to baseline, however remains slightly slurred. Pt states RUE & RLE remain slightly weak. Pt has PMH of uncontrolled DM, HTN, HX c spine fusion fall of 2023, pvd, copd and cvd. Pt admitted for evaluation and treatment of acute illness. Past Medical History Past Medical History: Arthritis, Asthma, COPD, Diabetes, GERD, Hypertension, PR and Seizures Additional Medical History: TIA, Recurrent Ear infections, Cataracts, Diverticulosis, Constipation, Rheumatoid Arthritis, Throat CA, recurrent UTI's Past Surgical History Surgical History: Cholecystectomy, Hysterectomy and Ortho Surgery Additional Surgical History: Right knee, Neck surgery due to neck fracture. Family History Family Medical History: Diabetes Mellitus, Cancer, PR and Sudden Cardiac Social History Does patient currently use any type of tobacco product: No Have you used tobacco products in the last 12 months: No Type of Tobacco Use: None Does any household member use tobacco: No Alcohol Use: None Drug Use: None Medications Home Medications: Home Medications Medication Instructions Recorded Confirmed Type allopurinol 100 mg tablet 100 mg PO QDAY 10/08/23 06/09/24 History empagliflozin 25 mg tablet 25 mg PO QDAY 10/08/23 06/09/24 History (Jardiance) olmesartan 20 1 tab PO QDAY 10/08/23 06/09/24 History mg-hydrochlorothiazide 12.5 mg tablet oxycodone-acetaminophen 10 mg-325 1 tab PO Q6H PRN 10/08/23 06/09/24 History mg tablet pantoprazole 40 mg tablet,delayed 40 mg PO QDAY 10/08/23 06/09/24 History release aspirin 81 mg tablet,delayed 81 mg PO QDAY 12/12/23 06/09/24 History release albuterol sulfate 90 mcg/actuation 2 puff inhalation Q4HR 04/02/24 06/09/24 History aerosol inhaler gabapentin 600 mg tablet 600 mg PO TID 06/09/24 06/09/24 History insulin glargine 100 unit/mL (3 40 unit subcut BID 06/09/24 06/09/24 History mL) subcutaneous pen (Lantus Solostar U-100 Insulin) insulin lispro 100 unit/mL See Rx Instructions .Route .COMPLEX 06/09/24 06/09/24 History subcutaneous solution (Humalog U-100 Insulin) Allergies Allergies Allergy/AdvReac Type Severity Reaction Status Date / Time No Known Drug Allergies Allergy Verified 06/09/24 17:02 Labs 06/10/24 04:25 06/10/24 04:25 Labs: Laboratory WBC 6.3 X10^3/uL (3.6-10.0) 06/10/24 04:25 RBC 5.41 X10^6/uL (3.5-5.4) H 06/10/24 04:25 Hgb 12.0 g/dL (12.0-16.0) 06/10/24 04:25 Hct 38.5 % (36.0-47.0) 06/10/24 04:25 MCV 71.1 fL (80.0-100.0) L 06/10/24 04:25 MCH 22.2 pg (27.0-34.0) L 06/10/24 04:25 MCHC 31.3 g/dL (33.0-35.0) L 06/10/24 04:25 RDW 15.0 % (11.6-16.5) 06/10/24 04:25 Plt Count 229 X10^3/uL (150.0-450.0) 06/10/24 04:25 Plt Count Comment Adequate (ADEQUATE) 06/10/24 04:25 MPV 9.2 fL (7.4-11.0) 06/10/24 04:25 Neut % (Auto) 49.3 % (42.0-75.0) 06/10/24 04:25 Lymph % (Auto) 39.4 % (21.0-51.0) 06/10/24 04:25 [place] % (Auto) 6.3 % (0.0-13.0) 06/10/24 04:25 Eos % (Auto) 4.3 % (0.9-2.9) H 06/10/24 04:25 Baso % (Auto) 0.7 % (0.2-1.0) 06/10/24 04:25 Neut # (Auto) 3.1 x10^3/uL (2.2-4.8) 06/10/24 04:25 Lymph # (Auto) 2.5 X10^3/uL (1.3-2.9) 06/10/24 04:25 [place] # (Auto) 0.4 x10^3/uL (0.3-0.8) 06/10/24 04:25 Eos # (Auto) 0.3 x10^3/uL (0.0-0.2) H 06/10/24 04:25 Baso # (Auto) 0.0 X10^3/uL (0.0-0.1) 06/10/24 04:25 Absolute Nucleated RBC 0.0 /100WBC 06/10/24 04:25 Total Counted 100 06/09/24 17:26 Neutrophils % (Manual) 56 % (39-76) 06/09/24 17:26 Lymphocytes % (Manual) 35 % (13-43) 06/09/24 17:26 Monocytes % (Manual) 7 % (4-9) 06/09/24 17:26 Eosinophils % (Manual) 2 % (0-6) 06/09/24 17:26 Plt Morphology Comment Normal (NORMAL) 06/10/24 04:25 RBC Morphology Abnormal (NORMAL) A 06/10/24 04:25 Hypochromasia 1+ A 06/09/24 17:26 Microcytosis Slight A 06/10/24 04:25 Target Cells Present 06/09/24 17:26 Tear Drop Cells Slight A 06/10/24 04:25 PT 13.5 SECONDS (11.8-14.3) 06/10/24 04:25 INR Target Range - 06/10/24 04:25 INR 1.06 (0.8-1.3) 06/10/24 04:25 APTT 22.1 SECONDS (22.9-36.5) L 06/10/24 04:25 PTT Comment - 06/10/24 04:25 Fibrinogen 506 mg/dL (239-489) H 06/09/24 17:26 Sodium 143 mmol/L (136-145) 06/10/24 04:25 Corrected Sodium 144 mmol/L (136-145) 06/10/24 04:25 Potassium 3.4 mmol/L (3.5-5.1) L 06/10/24 04:25 Chloride 107 mmol/L (98-107) 06/10/24 04:25 Carbon Dioxide 30.4 mmol/L (21-32) 06/10/24 04:25 BUN 19 mg/dL (7-18) H 06/10/24 04:25 Creatinine 1.02 mg/dL (0.55-1.02) 06/10/24 04:25 Est GFR (MDRD) Af Amer > 60 (>60) 06/10/24 04:25 Est GFR (MDRD) Non-Af 57 (>60) L 06/10/24 04:25 Glucose 150 mg/dL (65-99) H 06/10/24 04:25 POC Glucose (mg/dL) 218 mg/dL (65-99) H 06/10/24 17:23 Calcium 8.5 mg/dL (8.5-10.1) 06/10/24 04:25 Corrected Calcium 9.6 mg/dL (8.5-10.1) 06/10/24 04:25 Magnesium 2.0 mg/dL (2.0-2.9) 06/10/24 04:25 Total Bilirubin 0.40 mg/dL (0.2-1.0) 06/10/24 04:25 AST 18 Units/L (15-37) 06/10/24 04:25 ALT 21 Units/L (12-78) 06/10/24 04:25 Alkaline Phosphatase 110 Units/L (46-116) 06/10/24 04:25 Creatine Kinase 217 Units/L (26-192) H 06/10/24 10:03 Troponin I High Sens 8.5 ng/L (4.0-60.0) 06/10/24 10:03 Total Protein 7.2 g/dL (6.4-8.2) 06/10/24 04:25 Albumin 2.6 g/dL (3.4-5.0) L 06/10/24 04:25 Globulin 4.6 g/dL (2.5-4.5) H 06/10/24 04:25 Albumin/Globulin Ratio 0.6 Ratio (1.1-2.1) L 06/10/24 04:25 Triglycerides 83 mg/dL (0-150) 06/10/24 04:25 Cholesterol 228 mg/dL (0-200) H 06/10/24 04:25 LDL Cholesterol, Calc 152 mg/dL (0-100) H 06/10/24 04:25 HDL Cholesterol 59 mg/dL (40-60) 06/10/24 04:25 Cholesterol/HDL Ratio 3.9 (0.0-5.0) 06/10/24 04:25 Specimen Type Clean catch urine 06/09/24 18:29 Urine Color Yellow (YELLOW) 06/09/24 18:29 Urine Appearance Hazy (CLEAR) 06/09/24 18:29 Urine pH 5.0 (5.0 - 8.0) 06/09/24 18:29 Ur Specific [place] 1.015 (1.000-1.030) 06/09/24 18:29 Urine Protein Negative (NEGATIVE) 06/09/24 18:29 Urine Glucose (UA) 4+ (NEGATIVE) 06/09/24 18: Urine Ketones Negative (NEGATIVE) 06/09/24 18: Urine Blood Negative (NEGATIVE) 06/09/24 18: Urine Nitrite Negative (NEGATIVE) 06/09/24 18: Urine Bilirubin Negative (NEGATIVE) 06/09/24 18:29 Urine Urobilinogen Normal (NORMAL) 06/09/24 18:29 Ur Leukocyte Esterase Negative (NEGATIVE) 06/09/24 18:29 Review of Systems Constitutional: Weakness Eyes: Vision Change ENT: Nose Congestion Respiratory: Shortness of Breath Cardiovascular: Palpitations and Edema Gastrointestinal: No Symptoms Reported Genitourinary: Frequency Musculoskeletal: Back Pain and Neck Pain Skin: No Symptoms Reported Neurological: Weakness, Numbness, Change in Speech and Confusion Physical Exam Vital Signs: Vital Signs Temperature 97.6 F Pulse Rate [Brachial] 86 Respiratory Rate 21 Respiratory Rate 20 Blood Pressure [Left Arm] 162/72 O2 Sat by Pulse Oximetry 98 Oriented: Normal Eyes: Blurred Vision Nose: Normal Throat: Normal Respiratory: RLL Exp. Wheeze and LLL Exp. Wheeze Cardiovascular: Normal and Edema Auscultation: Bowel Sounds: Normal Palpation: Normal Tenderness: Normal Skin: Decreased Turgur Musculoskeletal: Back:Thoracic, Back:Lumbar, Motor Deficit, Sensory Deficit and Crepitance Psychiatric: Anxiety Mood Description: Anxious Speech Pattern: Appropriate Assessment/Plan (1) TIA (transient ischemic attack): Status: Acute Plan: tia vs cva CT HEAD ON ADMISSION, AM MRI AND C SPINE MRI BP CONTROL, BS CONTROL CE AND EKG CXR ON ADMISSION PRN SUPPLEMENTAL O2, VERIFY HOME MEDICATIONS ECHO AND CAROTID (2) Hyperlipidemia: Status: Chronic (3) GERD (gastroesophageal reflux disease): Status: Chronic (4) Arthritis: Status: Chronic (5) Hypertension: Status: Chronic (6) Diabetes: Status: Chronic (7) Degenerative disc disease, lumbar: Status: Chronic
[2024-06-10] MEDS: VISTARIL PO PRN (19:25)
[2024-06-10] MEDS: SNACK - Diabetic Appropriate PO SCH (19:32)
[2024-06-11 06:20] LABS: BASOPHILS % (AUTO) 0.7 % (0.2-1.0); EOSINOPHILS # (AUTO) 0.2 x10^3/uL (0.0-0.2); EOSINOPHILS % (AUTO) 4.1 % (0.9-2.9); HEMATOCRIT 46.2 % (36.0-47.0); HEMOGLOBIN 14.4 g/dL (12.0-16.0); LYMPHOCYTES # (AUTO) 1.5 X10^3/uL (1.3-2.9); LYMPHOCYTES % (AUTO) 32.2 % (21.0-51.0); MEAN CORPUSCULAR HEMOGLOBIN 22.4 pg (27.0-34.0); MEAN CORPUSCULAR HGB CONC 31.2 g/dL (33.0-35.0); MEAN CORPUSCULAR VOLUME 71.8 fL (80.0-100.0); MEAN PLATELET VOLUME 9.5 fL (7.4-11.0); MONOCYTES # (AUTO) 0.4 x10^3/uL (0.3-0.8); MONOCYTES % (AUTO) 8.1 % (0.0-13.0); NEUTROPHILS # (AUTO) 2.6 x10^3/uL (2.2-4.8); NEUTROPHILS % (AUTO) 54.9 % (42.0-75.0); PLATELET COUNT 181 X10^3/uL (150.0-450.0); RED BLOOD COUNT 6.43 X10^6/uL (3.5-5.4); WHITE BLOOD COUNT 4.7 X10^3/uL (3.6-10.0)
[2024-06-11 06:44] LABS: ALANINE AMINOTRANSFERASE 23 Units/L (12-78); ALBUMIN 2.9 g/dL (3.4-5.0); ALKALINE PHOSPHATASE 120 Units/L (46-116); ASPARTATE AMINO TRANSFERASE 23 Units/L (15-37); BLOOD UREA NITROGEN 19 mg/dL (7-18); CALCIUM 8.7 mg/dL (8.5-10.1); CARBON DIOXIDE 25.1 mmol/L (21-32); CHLORIDE 106 mmol/L (98-107); COR CA(FOR HYPOALB) 9.6 mg/dL (8.5-10.1); COR NA(FOR HYPERGLY) 143 mmol/L (136-145); CREATININE 1.12 mg/dL (0.55-1.02); GLUCOSE 253 mg/dL (65-99); MAGNESIUM 2.1 mg/dL (2.0-2.9); MICROCYTOSIS SLIGHT; PLATELET MORPHOLOGY COMMENT NORMAL (NORMAL); POTASSIUM 4.1 mmol/L (3.5-5.1); SODIUM 139 mmol/L (136-145); TARGET CELLS SLIGHT; TOTAL PROTEIN 7.8 g/dL (6.4-8.2); eGFR NON BLACK RACES 51 (>60)
[2024-06-11 06:45] LABS: HYPOCHROMASIA 1+
--- NOTE | 2024-06-11 09:01 | MRI ---
EXAM:MRI CERVICAL SPINE WITH AND WITHOUT CONTRASTHISTORY:DDD MULTIHANCE-18CC INJECTED INTO RIGHT AC ; .COMPARISON:CT cervical spine 05/09/2023, 04/12/2023.TECHNIQUE:Multiplanar multisequence MRI of the cervical spine was performed with and without 18 cc MultiHance gadolinium intravenously.Informed written consent was obtained prior to contrast administration.FINDINGS:Anterior cervical discectomy and fusion has been performed at [id number]-C6-C7 using anterior plate, corporeal screws, and intervertebral disc spacers. Straightening of curvature is similar to previous studies and may be related to previous surgery, positioning, and/or spasm. Vertebral body heights are maintained. There is mild degenerative retrolisthesis of C3 on C4 measuring 3 mm. The cervical spinal cord is impinged upon at C3-4 with associated increased T2 signal in the central aspect of the cord and volume loss. No evidence of syrinx. Included portions of the posterior fossa are within normal limits. The cerebellar tonsils are normally positioned. There is no evidence of discitis, osteomyelitis, or epidural abscess.Axial Images:C2-3: No disc pathology. Mild facet arthropathy.C3-4: Large circumferential disc/osteophyte complex and moderate facet arthropathy, [id number]. There is severe spinal stenosis, compressing the ventral surface of the spinal cord, with associated increased T2 signal and volume loss in the cord suggestive of chronic myelomalacia. There is moderate left and mild right neural foraminal stenosis.C4-5: Anterior fusion. No residual spinal stenosis or foraminal stenosis.C5-6: Anterior fusion. No residual spinal stenosis or foraminal stenosis.C6-7: Anterior fusion. No residual spinal stenosis or foraminal stenosis.C7-T1: No disc pathology. Mild facet arthropathy.Included portions of the upper thoracic spine demonstrate mild T1-2 degenerative disc disease contributing to mild spinal stenosis and moderate bilateral neural foraminal stenosis.IMPRESSION:1. ACDF C3 through C7 in anatomic alignment. There is no evidence of residual spinal stenosis or foraminal stenosis at the surgical levels.2. Above fusion, at C3-4, there is severe degenerative disc disease, facet arthropathy, and 3 mm degenerative retrolisthesis of C3 on C4. A combination of these factors results in severe spinal stenosis, compressing the spinal cord, with associated increased T2 signal and volume loss in the cord consistent with chronic myelomalacia. Correlate clinically with symptoms of myelopathy. Moderate neural foraminal stenosis, [id number].THIS IS AN ELECTRONICALLY VERIFIED FINAL REPORT06/11/2024 8:57 AM - Electronically signed by Reynaldo Woody MD
[2024-06-11 14:14] VITALS: BP 159/71; PULSE 91; RESP 18; TEMP 98.2; O2SAT 95
== END 2024-06-11 13:10 | disposition home health service (06) ==
LOC: MED/SURG 16:49 → ER 16:49 → MED/SURG 21:12
PROVIDERS: ADMIT Internal Medicine; ATTEND Internal Medicine
DX: E78.5 Hyperlipidemia, unspecified; R94.31 Abnormal electrocardiogram [ECG] [EKG]; E83.42 Hypomagnesemia; R51.9 Headache, unspecified; R26.89 Other abnormalities of gait and mobility; I10 Essential (primary) hypertension; K21.9 Gastro-esophageal reflux disease without esophagitis; M51.369 Other intervertebral disc degeneration, lumbar region without mention of lumbar back pain or lower extremity pain; R20.0 Anesthesia of skin; E11.65 Type 2 diabetes mellitus with hyperglycemia; M19.90 Unspecified osteoarthritis, unspecified site; J44.9 Chronic obstructive pulmonary disease, unspecified; E87.6 Hypokalemia; G45.8 Other transient cerebral ischemic attacks and related syndromes; R06.02 Shortness of breath; R79.1 Abnormal coagulation profile; I69.398 Other sequelae of cerebral infarction